=== PATIENT | female | born 1945 | race Caucasian/White ===

== ENCOUNTER → 2016-06-07 | Outpatient (CLI) | payer MEDICARE ==
--- NOTE | 2016-06-09 14:32 | DEXA ---
AP SPINE L1 - L4 0.884 -2.5 -1.0 LT FEMUR TOTAL 0.771 -1.9 -0.6 RT FEMUR TOTAL 0.808 -1.6 -0.3 TOTAL BODY TOTAL OTHER DUAL FEMUR FRAX* ASSESSMENT Risk factors: History of adult fracture. 10 year probability of fracture Major osteoporotic fracture 23.4 % Hip fracture 6.0 % COMMENTS: There is low bone density of the spine. There is low bone density of the right hip. There is osteoporosis of the left hip. The density of the spine has increased 2.7% since the initial exam on 05/2005. The spine density has increased 2.2% since the most recent exam on 02/2013. The density of the left hip has decreased 6.4% since the initial exam on 05/2005. The density of the left hip has decreased 6.5% since the most recent exam on 2012. The density of the right hip has decreased 5.7% since the initial exam on 2005. The density of the right hip has increased 0.1% since the most recent exam on . FOLLOW-UP: Recommendation for the next bone density exam: 2 years. CLAUDIA
== END ==
LOC: M WHC 11:02
PROVIDERS: ATTEND Internal Medicine
DX: M85.9 Disorder of bone density and structure, unspecified (principal); Z13.820 Encounter for screening for osteoporosis

== ENCOUNTER → 2016-10-26 | Outpatient (CLI) | payer MEDICARE ==
[2016-10-26 09:29] LABS: ALBUMIN 3.5 GM/DL (3.2-5.2); ALBUMIN/GLOBULIN RATIO 1.03 (1.00-1.93); ALKALINE PHOSPHATASE 62 U/L (45-117); ALT/SGPT 21 U/L (12-78); ANION GAP 9 MEQ/L (8-16); AST/SGOT 18 U/L (15-37); BILIRUBIN,TOTAL 0.3 MG/DL (0.2-1.0); BLOOD UREA NITROGEN 16 MG/DL (7-18); CARBON DIOXIDE LEVEL 27 MEQ/L (21-32); CHLORIDE LEVEL 109 MEQ/L (98-107); CHOLESTEROL LEVEL 238 MG/DL (<200); CREATININE FOR GFR 0.76 MG/DL (0.55-1.02); GLOMERULAR FILTRATION RATE > 60.0 (>45); GLUCOSE, FASTING 91 MG/DL (80-110); POTASSIUM SERUM 4.3 MEQ/L (3.5-5.1); SODIUM LEVEL 145 MEQ/L (136-145); TOTAL PROTEIN 6.9 GM/DL (6.4-8.2); TRIGLYCERIDES LEVEL 95 MG/DL (<150)
== END ==
LOC: M WUC 08:14
PROVIDERS: ATTEND Nurse Practitioner Adult Health
DX: Z00.00 Encounter for general adult medical examination without abnormal findings (principal); E78.2 Mixed hyperlipidemia

== ENCOUNTER → 2016-12-19 | Outpatient (CLI) | payer MEDICARE ==
--- NOTE | 2016-12-19 14:41 | REPMRS ---
Patient History The patient states she has not had a clinical breast exam in over a year. Patient is postmenopausal. No known family history of cancer. Benign FNA biopsy of the left breast, August 17, 2010. Digital Woman Screen Mammo: December 19, 2016 - Exam #: [id number] Bilateral CC and MLO view(s) were taken. Technologist: Trisha Aarna Technologist Prior study comparison: March 30, 2015, digital woman screen mammo performed at [facility] to [facility]. December 27, 2012, digital woman screen mammo performed at [facility] to [facility]. FINDINGS: There are scattered fibroglandular densities. There has been no change in the appearance of the mammogram from the prior studies. There is a mild amount of residual fibroglandular tissue which is fairly symmetric. There is no interval development of dominant mass, architectural distortion, or clustered microcalcification suggestive of malignancy. ASSESSMENT: BI-RADS/ACR category 1 mammogram. Negative. Recommendation Routine screening mammogram in 1 year (for women over age 40). This mammogram was interpreted with the aid of an FDA-approved computer-aided dectection system. Electronically Signed By: Cruzito Najera MD 12/19/16 [id number]
== END ==
LOC: M WHC 13:51
PROVIDERS: ATTEND Nurse Practitioner Family
DX: Z12.31 Encounter for screening mammogram for malignant neoplasm of breast (principal)

== ENCOUNTER → 2018-03-01 | Outpatient (REF) | payer MEDICARE ==
[2018-03-01 14:09] LABS: HEMATOCRIT 41.8 % (36.0-47.0); HEMOGLOBIN 13.3 g/dl (12.0-15.5); MEAN CORPUSCULAR HEMOGLOBIN 32.4 pg (27.0-33.0); MEAN CORPUSCULAR HGB CONC 31.8 g/dl (32.0-36.5); PLATELET COUNT, AUTOMATED 309 10^3/uL (150-450); RED CELL DISTRIBUTION WIDTH 12.6 % (11.5-14.5); WHITE BLOOD COUNT 5.3 10^3/uL (4.0-10.0)
[2018-03-01 14:19] LABS: ALBUMIN 3.7 GM/DL (3.2-5.2); ALBUMIN/GLOBULIN RATIO 1.12 (1.00-1.93); ALKALINE PHOSPHATASE 61 U/L (45-117); ALT/SGPT 17 U/L (12-78); ANION GAP 6 MEQ/L (8-16); AST/SGOT 19 U/L (7-37); BILIRUBIN,TOTAL 0.4 MG/DL (0.2-1.0); BLOOD UREA NITROGEN 20 MG/DL (7-18); CALCIUM LEVEL 9.2 MG/DL (8.8-10.2); CARBON DIOXIDE LEVEL 28 MEQ/L (21-32); CHLORIDE LEVEL 108 MEQ/L (98-107); CHOLESTEROL LEVEL 256 MG/DL (<200); CHOLESTEROL RISK RATIO 2.694 (<5); CREATININE FOR GFR 0.69 MG/DL (0.55-1.30); GLOMERULAR FILTRATION RATE > 60.0 (>39); GLUCOSE, FASTING 92 MG/DL (70-100); HDL CHOLESTEROL 95 MG/DL (>40); LDL CHOLESTEROL 144 MG/DL (<100); NON-HDL-C 161 MG/DL; POTASSIUM SERUM 4.8 MEQ/L (3.5-5.1); SODIUM LEVEL 142 MEQ/L (136-145); TRIGLYCERIDES LEVEL 85 MG/DL (<150)
== END ==
LOC: M SFHCPLAZ 09:08
DX: J98.01 Acute bronchospasm (principal); I10 Essential (primary) hypertension; E78.00 Pure hypercholesterolemia, unspecified
CPT/HCPCS: 83735

== ENCOUNTER → 2018-09-18 | Outpatient (REF) | payer MEDICARE ==
[2018-09-18 13:55] LABS: ALBUMIN 4.1 GM/DL (3.2-5.2); ALT/SGPT 19 U/L (12-78); BILIRUBIN,TOTAL 0.5 MG/DL (0.2-1.0); BLOOD UREA NITROGEN 23 MG/DL (7-18); CALCIUM LEVEL 9.5 MG/DL (8.8-10.2); CARBON DIOXIDE LEVEL 32 MEQ/L (21-32); CHLORIDE LEVEL 104 MEQ/L (98-107); CHOLESTEROL LEVEL 242 MG/DL (<200); CHOLESTEROL RISK RATIO 2.444 (<5); CREATININE FOR GFR 0.79 MG/DL (0.55-1.30); GLOMERULAR FILTRATION RATE > 60.0 (>39); GLUCOSE, FASTING 99 MG/DL (70-100); HDL CHOLESTEROL 99 MG/DL (>40); LDL CHOLESTEROL 125 MG/DL (<100); MAGNESIUM LEVEL 2.4 MG/DL (1.8-2.4); NON-HDL-C 143 MG/DL; SODIUM LEVEL 140 MEQ/L (136-145); TOTAL PROTEIN 7.6 GM/DL (6.4-8.2); TRIGLYCERIDES LEVEL 90 MG/DL (<150)
[2018-09-18 14:26] LABS: TOTAL 25(OH) VITAMIN D 24.4 NG/ML (30.0-100.0)
== END ==
LOC: M SFHCPLAZ 11:15
PROVIDERS: ATTEND Internal Medicine
DX: I10 Essential (primary) hypertension (principal); E78.00 Pure hypercholesterolemia, unspecified; M85.80 Other specified disorders of bone density and structure, unspecified site
CPT/HCPCS: 36415; 80053; 80061; 82306; 83735; G0463

== ENCOUNTER → 2018-10-28 | Outpatient (CLI) | payer MEDICARE ==
--- NOTE | 2018-10-28 14:51 | REPMRS ---
Patient History The patient states she has not had a clinical breast exam in over a year. No known family history of cancer. Benign FNA biopsy of the left breast, August 17, 2010. 3D TOMOSYNTHESIS WAS PERFORMED. [facility] lifetime risk for breast cancer is 3.5%. Digital Woman Screen Mammo: October 28, 2018 - Exam #: [id number] Bilateral CC and MLO view(s) were taken. Technologist: Magalie Melvin, Technologist Prior study comparison: December 19, 2016, digital woman screen mammo performed at [facility]. March 30, 2015, digital woman screen mammo performed at [facility] [employer] [facility]. FINDINGS: The breast tissue is heterogeneously dense. This may lower the sensitivity of mammography. There has been no change in the appearance of the mammogram from the prior studies. There is a moderate amount of residual fibroglandular tissue which is fairly symmetric. There is no interval development of dominant mass, areas of architectural distortion, or clustered microcalcification typical of malignancy. Assessment: BI-RADS/ACR category 1 mammogram. Negative Mammogram. Recommendation Routine screening mammogram in 1 year (for women over age 40). This mammogram was interpreted with the aid of an FDA-approved computer-aided dectection system. Electronically Signed By: Cruzito Najera MD 10/28/18 [id number]
--- NOTE | 2018-10-30 15:52 | DEXA ---
AP SPINE L1 - L4 0.899 -2.3 -0.7 LT FEMUR TOTAL 0.725 -2.2 -0.7 LT NECK 0.648 -2.8 -1.1 RT FEMUR TOTAL 0.749 -2.1 -0.5 RT NECK 0.675 -2.6 -0.9 TOTAL BODY TOTAL OTHER COMMENTS: There is low bone density of the spine. There is osteoporosis of the hips. The increased density of the spine does not represent a significant change. The decreased density of the left hip does represent a significant change. The decreased density of the right hip does represent a significant change. The density of the spine has increased 4.4% since the initial exam on 05/31/2005. The spine density has increased 1.7% since the most recent exam on 06/07/2016. The density of the left hip has decreased 12.0% since the initial exam on 05/31/2005. The density of the left hip has decreased 6.0% since the most recent exam on 06/07/2016. The density of the right hip has decreased 12.6% since the initial exam on 05/31/2005. The density of the right hip has decreased 7.3% since the most recent exam on 06/07/2016. FOLLOW-UP: Recommendation for the next bone density exam: 2 years. CLAUDIA
== END ==
LOC: M WHC 13:35
PROVIDERS: ATTEND Internal Medicine
DX: Z12.31 Encounter for screening mammogram for malignant neoplasm of breast (principal); M85.80 Other specified disorders of bone density and structure, unspecified site; M81.0 Age-related osteoporosis without current pathological fracture

== ENCOUNTER → 2019-03-19 | Outpatient (REF) | payer MEDICARE ==
[~2019-03-19] MED LIST: ACE65ERTAB PO; ALEN70TA74 PO; CHLO125TA PO; D 202000 PO; ELIQ5TAB PO; FISH1000 PO; FLUTISP NARES; GNP1000T11 PO; METH4PACK PO; MONT10TA2 PO; MULT-40 PO; OMEP-218 PO; PROAAER10 INH; VALA1TAB64 PO
[2019-03-19 14:06] LABS: HEMATOCRIT 43.6 % (36.0-47.0); HEMOGLOBIN 13.7 g/dl (12.0-15.5); MEAN CORPUSCULAR HEMOGLOBIN 31.6 pg (27.0-33.0); MEAN CORPUSCULAR HGB CONC 31.4 g/dl (32.0-36.5); MEAN CORPUSCULAR VOLUME 100.5 fl (80.0-96.0); PLATELET COUNT, AUTOMATED 373 10^3/uL (150-450); RED BLOOD COUNT 4.34 10^6/uL (4.00-5.40); WHITE BLOOD COUNT 8.2 10^3/uL (4.0-10.0)
[2019-03-19 14:35] LABS: ALBUMIN 3.9 GM/DL (3.2-5.2); ALT/SGPT 18 U/L (12-78); BILIRUBIN,TOTAL 0.4 MG/DL (0.2-1.0); BLOOD UREA NITROGEN 15 MG/DL (7-18); CALCIUM LEVEL 10.1 MG/DL (8.8-10.2); CARBON DIOXIDE LEVEL 28 MEQ/L (21-32); CHLORIDE LEVEL 102 MEQ/L (98-107); CHOLESTEROL LEVEL 235 MG/DL (<200); CHOLESTEROL RISK RATIO 2.447 (<5); CREATININE FOR GFR 0.83 MG/DL (0.55-1.30); GLOMERULAR FILTRATION RATE > 60.0 (>39); GLUCOSE, FASTING 78 MG/DL (70-100); HDL CHOLESTEROL 96 MG/DL (>40); LDL CHOLESTEROL 108 MG/DL (<100); MAGNESIUM LEVEL 2.2 MG/DL (1.8-2.4); NON-HDL-C 139 MG/DL; SODIUM LEVEL 139 MEQ/L (136-145); TOTAL 25(OH) VITAMIN D 28.8 NG/ML (30.0-100.0); TOTAL PROTEIN 7.8 GM/DL (6.4-8.2); TRIGLYCERIDES LEVEL 155 MG/DL (<150)
== END ==
LOC: M SFHCPLAZ 11:23
PROVIDERS: ATTEND Internal Medicine
DX: J98.01 Acute bronchospasm (principal); I10 Essential (primary) hypertension; E78.00 Pure hypercholesterolemia, unspecified; M85.80 Other specified disorders of bone density and structure, unspecified site
CPT/HCPCS: 36415; 80053; 80061; 82306; 83735; 84443; 85027; G0463

== ENCOUNTER 2019-04-07 11:09 | Inpatient (IN) | payer MEDICARE ==
[~2019-04-07] VITALS: Ht 152.4 cm; Wt 68.5 kg
[2019-04-07] MEDS ORDERED: VALA1TAB5 PO (12:21)
[2019-04-07] MEDS ORDERED: PROAAER10 INH (12:21)
[2019-04-07] MEDS ORDERED: MONT10TA4 PO (12:21)
[2019-04-07] MEDS ORDERED: FLUTISP NARES (12:21)
[2019-04-07] MEDS ORDERED: CHLO125TA PO (12:21)
[2019-04-07] MEDS ORDERED: METH4PACK PO (12:21)
[2019-04-07] MEDS ORDERED: OMEP-218 PO (12:21)
[2019-04-07] MEDS ORDERED: ALEN70TA74 PO (12:21)
[2019-04-07 12:33] LABS: HEMATOCRIT 38.6 % (36.0-47.0); HEMOGLOBIN 12.9 g/dl (12.0-15.5); MEAN CORPUSCULAR HEMOGLOBIN 32.4 pg (27.0-33.0); MEAN CORPUSCULAR HGB CONC 33.4 g/dl (32.0-36.5); PLATELET COUNT, AUTOMATED 272 10^3/uL (150-450); RED BLOOD COUNT 3.98 10^6/uL (4.00-5.40); WHITE BLOOD COUNT 14.1 10^3/uL (4.0-10.0)
[2019-04-07 12:44] LABS: INR 0.99; PARTIAL THROMBOPLASTIN TIME 26.5 SECONDS (25.0-38.4); PROTHROMBIN TIME 12.8 SECONDS (11.8-14.0)
[2019-04-07 12:58] LABS: BLOOD UREA NITROGEN 22 MG/DL (7-18); CARBON DIOXIDE LEVEL 27 MEQ/L (21-32); CHLORIDE LEVEL 102 MEQ/L (98-107); CK-MB VALUE MASS < 1.0 NG/ML (<3.6); CPK CREATINE PHOSPHOKINASE 54 U/L (26-192); CREATININE FOR GFR 0.91 MG/DL (0.55-1.30); GLOMERULAR FILTRATION RATE > 60.0 (>39); GLUCOSE, FASTING 128 MG/DL (70-100); MB/CK RELATIVE INDEX 1.85 (< OR =4); POTASSIUM SERUM 3.6 MEQ/L (3.5-5.1); SODIUM LEVEL 137 MEQ/L (136-145); TROPONIN I < 0.02 NG/ML (< 0.10)
[2019-04-07] MEDS ORDERED: ISOVUE-370 76% 100ML VIAL (Q9967) As Ordered ONE (13:33)
--- NOTE | 2019-04-07 14:04 | REP ---
CT of the chest with IV contrast, CT pulmonary artery angiography: There are no comparison CT studies. On a left lower extremity venous ultrasound earlier today. There is extensive deep vein thrombus. And the CT today there is a saddle of thrombus at the bifurcation of the main pulmonary artery. There is thrombus extending from the bifurcation into the right upper lobe, middle lobe and lower lobe pulmonary arteries. Additionally, there is thrombus extending from the bifurcation into the left upper lobe and lower lobe arteries. The thrombus burden is greater on the right than the left. There are no infiltrates or pleural effusions. There are no lung masses or nodules. There is no mediastinal, hilar or axillary adenopathy. The thoracic aorta is unremarkable. Cardiac size is normal. No pericardial effusion. The visualized upper abdominal contents are unremarkable. Impression: There is a saddle embolus in the central pulmonary arteries at the pulmonary bifurcation with thrombus extending bilaterally into the upper lobe, middle lobe and lower lobe pulmonary artery branches bilaterally. There is a greater thrombus burden on the right than the left. Electronically Signed by Cruzito Figueroa MD 04/07/2019 01:55 P
[2019-04-07] MEDS ORDERED: HEPARIN DRIP 25,000 UNITS in IV 1 EA IV SCH (14:27)
[2019-04-07] MEDS ORDERED: HEPARIN SOD (PORCINE) 5000 UNITS/ML VIAL (J1644 PER 1000UNITS) IV ONE (14:30)
[2019-04-07] MEDS ORDERED: GNP1000T11 PO (14:46)
[2019-04-07] MEDS ORDERED: MULT-40 PO (14:46)
[2019-04-07] MEDS ORDERED: ACE65ERTAB PO (14:46)
[2019-04-07] MEDS ORDERED: FISH1000 PO (14:46)
[2019-04-07] MEDS ORDERED: D 202000 PO (14:46)
--- NOTE | 2019-04-07 15:28 | CR.PDOC ---
General Date of Consultation: Apr 07, [address] Hartman HPI: 73 year old F found to have left lower extremity DVT at a local urgent care, sent to the emergency department for additional evaluation. CTA chest indicates pulmonary embolism. Vascular surgery consulted. The patient dates her symptoms began last Sunday with discomfort in her left lower extremity. She had some mild swelling. She denies any redness or t enderness with palpation. She went for evaluation at urgent care and was sent for an ultrasound of the left lower extremity indicating DVT. For this reason she was referred to the emergency department. She states she has not had any chest heaviness or tightness, yesterday she had a few twinges in her chest which were seconds only. This morning when she carries laundry upstairs she noticed shortness of breath. Currently she is resting comfortably on the stretcher in the emergency department and denies chest pain or shortness of breath. Oxygen saturation is stable on room air. She denies any recent travel, illnesses, denies any immobility. Denies any recent surgical procedures. Denies any history of malignancy. Denies any prior history of DVT or PE. Denies clotting disorder. The patient states she is usually very active with a 5-year-old granddaughter. The patient denies any episodes of uncontrolled blood pressure. Denies history of intracranial hemorrhage, AVM, intracranial neoplasm. Denies history of ischemic stroke or TIA within the past 3 months. Denies history of closed head trauma. Denies history of spinal surgery. Denies any recent eye surgery. Denies any recent bleeding, GI bleeding, hematuria, epistaxis. Denies any fevers, chills, weakness, fatigue, Headache, cough, abdominal pain, N/V/D or changes in bowel or bladder habits. PMHx: Asthma Hypertension GERD Osteoporosis PSHX: Rotator cuff repair SOCHX: Nonsmoker One to 2 drinks per week FAMHX: Denies family history of clotting disorder ROS: As noted in HPI, otherwise 11pt ROS of systems reviewed and unremarkable. PE: GEN: 73 yo F, appears stated age. Well-nourished, well developed. No acute distress. Alert and oriented x 3. Pleasant, interactive. HEENT: Normocephalic, atraumatic. Moist mucous membranes. CHEST: Regular rate and rhythm, +S1, +S2 LUNGS: Clear to auscultation bilaterally. ABD: Round, soft, non-tender, non-distended. EXT: No lower extremity edema appreciated. SKIN: [place], dry, warm. Capillary refill <2sec. No rashes. NEURO: Alert and oriented x 3. Cranial nerves III-XII are intact. No focal deficits appreciated. LLE US Left lower extremity deep vein duplex ultrasound for thrombus: There is extensive occlusive thrombus extending from the popliteal vein to the common femoral vein. Extensive thrombus is also identified in the profunda femoral vein. . No thrombus is identified in the saphenous vein. Impression: Complete occlusive thrombosis of the deep venous system of the left lower extremity. Electronically Signed by Cruzito Figueroa MD 04/07/2019 10:54 A CTA chest Impression: There is a saddle embolus in the central pulmonary arteries at the pulmonary bifurcation with thrombus extending bilaterally into the upper lobe, middle lobe and lower lobe pulmonary artery branches bilaterally. There is a greater thrombus burden on the right than the left. Electronically Signed by Cruzito Figueroa MD 04/07/2019 01:55 P A&P: 1. Extensive DVT/PE. Admission as per medicine service. Heart rate 97-112 Blood pressure 147/82 Oxygen saturation 95% room air. Hemoglobin 12.9 GFR greater than 60. TTE pending. Initial cardiac enzymes negative. Hypercoagulable workup pending. IV heparin per protocol initiated. The patient will be reviewed and examined as per Dr. Hartman, additional recommendations pending. Vital Signs/I&O Vital Signs Date Time Temp Pulse Resp B/P (MAP) Pulse Ox O2 Delivery O2 Flow Rate FiO2 04/07/19 15:11 147/82 (103) 04/07/19 15:09 101 18 95 Room Air 04/07/19 11:09 98.9 Laboratory Data Labs 24H Laboratory Tests 2 04/07/19 12:10: Nucleated Red Blood Cells % (auto) 0.0, Prothrombin Time 12.8, Prothromb Time International Ratio 0.99, Activated Partial Thromboplast Time 26.5, Anion Gap 8, Glomerular Filtration Rate > 60.0, Calcium Level 10.0, Total Creatine Kinase 54, Creatine Kinase MB < 1.0, Creatine Kinase MB Relative Index 1.85, Troponin I < 0.02 04/07/19 13:29: Fibrinogen 526H CBC/BMP Laboratory Tests 04/07/19 12:10 Allergies Coded Allergies: No Known Allergies (Verified Allergy, Unknown, 04/07/19) Home Medications Scheduled Alendronate Sodium (Alendronate Sodium) 70 Mg Tablet, 70 MG PO QWEEK, (Reported) NEW MEDICATION, HAS NOT STARTED Chlorthalidone (Chlorthalidone) 25 Mg Tablet, 12.5 MG PO DAILY, (Reported) HALF TABLET Cholecalciferol (Vitamin D3) (Vitamin D3) 2,000 Unit Tablet, 2,000 UNIT PO DAILY, (Reported) Glucosamine Sulfate Dipot Chlr (Glucosamine) 1,000 Mg Tablet, 1,000 MG PO DAILY, (Reported) Methylprednisolone (Methylprednisolone) 4 Mg Tab.ds.pk, 4 MG PO ASDIRECTED, (Reported) TO FOLLOW PACKAGE INSTRUCTIONS ON DAY 2 OF PACK Montelukast Sodium (Montelukast Sodium) 10 Mg Tablet, 10 MG PO DAILY, (Reported) Multivitamin (Multivitamins) 1 Each Tablet, 1 TAB PO DAILY, (Reported) [place]-3 Fatty Acids/Fish Oil (Fish Oil 1,000 mg Capsule) 1 Each Capsule, 1,000 MG PO DAILY, (Reported) Omeprazole (Omeprazole) 20 Mg Capsule.dr, 20 MG PO DAILY, (Reported) NEW MEDICATION Scheduled PRN Acetaminophen (Acetaminophen ER) 650 Mg Tablet.er, 1,300 MG PO Q8H PRN for PAIN, (Reported) Albuterol Sulfate (Proair Hfa) 8.5 Gm Hfa.aer.ad, 2 PUFFS INH QID PRN for SHORTNESS OF BREATH, (Reported) Fluticasone Propionate (Fluticasone Propionate) 16 Gm [place].susp, 1 SPRAY NARES BID PRN for CONGESTION, (Reported) Valacyclovir HCl (Valacyclovir) 1,000 Mg Tablet, 1,000 MG PO DAILYPRN PRN for COLD SORES, (Reported) Assessment/Plan 1. Left lower extremity ileofemoral DVT 2. Pulmonary emboli - given the extent of the left leg DVT, I recommended to her thrombolysis to decrease the chance of postthrombotic syndrome in that leg. On ultrasound, the clot extends likely into the iliac vein as it is seen in the common femoral. - recommend continued anticoagulation with a heparin drip and transition to oral anticoagulation after the procedures. Plan for venogram and placement of lysis catheter tomorrow in IR, will lysis overnight and return on Wednesday - discussed options with patient including risks and benefits of procedure. She would like to proceed. CC TO: Primary Care Provider: Milad Milligan Referring Provider: Problems: (1) Left leg DVT (2) Saddle pulmonary embolus Siria Avila Apr 07, 2019 15:28 ROLANDO HARTMAN MD Apr 07, 2019 17:11
[2019-04-07] MEDS ORDERED: POTASSIUM CHLORIDE 10 MEQ SR TABLET PO ONE (15:30)
--- NOTE | 2019-04-07 15:32 | HPEPDOC ---
[facility] Medical History & Physical Date of Admission Apr 07, 2019 Date of Service: Apr 07, 2019 Attending Physician: MISA LEO MD History and Physical CHIEF COMPLAINT: Sent from urgent care for left lower extremity DVT HISTORY OF PRESENT ILLNESS: 73-year-old female with past medical history of h ypertension and asthma presents from urgent care with left lower extremity DVT. Patient started experiencing left lower extremity swelling and cramping one week ago, went to urgent care yesterday, was sent home with oral steroids and advised to call back if no improvement in leg pain/swelling. Patient continued to have persistent symptoms, underwent outpatient lower extremity Doppler which showed an extensive left lower extremity DVT extending from the common femoral to the popliteal vein, even including superficial femoral vein. Patient had a CTA in the ED which showed a saddle embolus with extensive clot burden in both of her lungs. Patient is hemodynamically stable, on room air, slightly tachycardic. Patient is currently asymptomatic, denies any shortness of breath, chest pain, nausea, vomiting, abdominal pain or diarrhea. Patient has no personal history of malignancy, has been compliant with her routine mammograms and colonoscopy. 10 point review of system is negative except for above PAST MEDICAL HISTORY: 1. Hypertension. 2. Asthma. PAST SURGICAL HISTORY: 1. Rotator cuff. SOCIAL HISTORY: Never smoker. Social alcohol use. Denies drug use FAMILY HISTORY: No family history of blood clots. ALLERGIES: Please see below. HOME MEDICATIONS: Please see below. PHYSICAL EXAMINATION: VITAL SIGNS: Please see below. GENERAL: No distress HEENT: Normocephalic, atraumatic, moist mucous membranes NECK: Supple CARDIOVASCULAR EXAMINATION: S1, S2, tachycardic RESPIRATORY EXAMINATION: Scattered rhonchi, no wheezing ABDOMINAL EXAMINATION: Soft, nontender, nondistended, positive bowel sounds EXTREMITIES: Range of motion intact SKIN: No rash NEUROLOGICAL EXAMINATION: Alert and oriented 3, no focal deficits PSYCHIATRIC EXAMINATION: Calm and cooperative LABORATORY DATA: See below. IMAGING: Lower extremity Doppler showing extensive left lower extremity DVT. CTA showing saddle embolism with extensive clot burden in both of the lungs MICROBIOLOGY: Please see below. ASSESSMENT: 73-year-old female with past medical history of hypertension and asthma being admitted for left lower extremity DVT and saddle embolism with bilateral PEs. PLAN: 1. DVT with PE. Low sugar Doppler with extensive left lower septic clot burden, CTA showing saddle embolism with extensive clot burden in both lungs, hemodynamically stable, saturating well on room air, mildly tachycardic, asymptomatic. Heparin drip started, stat TTE ordered, vascular surgery consulted for possible IVC filter. Will monitor patient in the ICU, given extensive clot burden and possibility of having another embolism. Troponin negative, will trend. 2. Hypertension. Continue chlorthalidone 3. Asthma. Continue Singulair DVT prophylaxis: On heparin infusion. GI prophylaxis: Not needed Vital Signs Vital Signs Date Time Temp Pulse Resp B/P (MAP) Pulse Ox O2 Delivery O2 Flow Rate FiO2 04/07/19 15:11 147/82 (103) 04/07/19 15:09 101 18 95 Room Air 04/07/19 11:09 98.9 Laboratory Data Labs 24H Laboratory Tests 2 04/07/19 12:10: Nucleated Red Blood Cells % (auto) 0.0, Prothrombin Time 12.8, Prothromb Time International Ratio 0.99, Activated Partial Thromboplast Time 26.5, Anion Gap 8, Glomerular Filtration Rate > 60.0, Calcium Level 10.0, Total Creatine Kinase 54, Creatine Kinase MB < 1.0, Creatine Kinase MB Relative Index 1.85, Troponin I < 0.02 04/07/19 13:29: Fibrinogen 526H CBC/BMP Laboratory Tests 04/07/19 12:10 Home Medications Scheduled Alendronate Sodium (Alendronate Sodium) 70 Mg Tablet, 70 MG PO QWEEK NEW MEDICATION, HAS NOT STARTED Chlorthalidone (Chlorthalidone) 25 Mg Tablet, 12.5 MG PO DAILY HALF TABLET Cholecalciferol (Vitamin D3) (Vitamin D3) 2,000 Unit Tablet, 2,000 UNIT PO DAILY Glucosamine Sulfate Dipot Chlr (Glucosamine) 1,000 Mg Tablet, 1,000 MG PO DAILY Methylprednisolone (Methylprednisolone) 4 Mg Tab.ds.pk, 4 MG PO ASDIRECTED TO FOLLOW PACKAGE INSTRUCTIONS ON DAY 2 OF PACK Montelukast Sodium (Montelukast Sodium) 10 Mg Tablet, 10 MG PO DAILY Multivitamin (Multivitamins) 1 Each Tablet, 1 TAB PO DAILY [place]-3 Fatty Acids/Fish Oil (Fish Oil 1,000 mg Capsule) 1 Each Capsule, 1,000 MG PO DAILY Omeprazole (Omeprazole) 20 Mg Capsule.dr, 20 MG PO DAILY NEW MEDICATION Scheduled PRN Acetaminophen (Acetaminophen ER) 650 Mg Tablet.er, 1,300 MG PO Q8H PRN for PAIN Albuterol Sulfate (Proair Hfa) 8.5 Gm Hfa.aer.ad, 2 PUFFS INH QID PRN for SHORTNESS OF BREATH Fluticasone Propionate (Fluticasone Propionate) 16 Gm [place].susp, 1 SPRAY NARES BID PRN for CONGESTION Valacyclovir HCl (Valacyclovir) 1,000 Mg Tablet, 1,000 MG PO DAILYPRN PRN for COLD SORES Allergies Coded Allergies: No Known Allergies (Verified Allergy, Unknown, 04/07/19) A-FIB/CHADSVASC A-FIB History Current/History of A-Fib/PAF?: No MISA LEO MD Apr 07, 2019 15:32
[2019-04-07 17:47] VITALS: BP 159/72
[2019-04-07] MEDS: NS 1,000 ML IV SCH (17:59)
[2019-04-07] MEDS: ACETAMINOPHEN TAB 650MG DOSE (2X325MG) PO PRN (19:08)
--- NOTE | 2019-04-07 19:15 | ECGEPIP ---
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
[2019-04-07 20:00] VITALS: BP 133/78
[2019-04-07] MEDS: HEPARIN SOD (PORCINE) 5000 UNITS/ML VIAL (J1644 PER 1000UNITS) IV PRN (21:37)
[2019-04-07 22:00] VITALS: BP 112/72
--- NOTE | 2019-04-07 22:25 | ECHO ---
DATE OF PROCEDURE: 04/07/2019 REFERRING PHYSICIAN: Dr. Deion Oden INDICATION: Pulmonary embolism. HEIGHT: 64 inches WEIGHT: 163 pounds 2D MEASUREMENTS: Aortic root: 3.4 cm Proximal ascending aorta: 3.9 cm Left atrium: 4.2 cm Ventricular septum: 1.03 cm Posterior wall: 0.98 cm Left ventricle diastole: 4.6 cm Aortic annulus: 2.3 cm Inferior vena cava: 1.6 cm with normal respiratory variation (CVP estimated to be 5-10 mmHg). DOPPLER MEASUREMENTS: Aortic valve velocity: 115 cm/s LVOT velocity: 93.3 cm/s Mitral E velocity: 53.6 cm/s Mitral A velocity: 105 cm/s Mitral deceleration time: 271 ms No mitral regurgitation. Moderate tricuspid regurgitation. No aortic regurgitation. Trace pulmonic regurgitation. Estimated right ventricle systolic pressure: 62-67 mmHg assuming a pressure of 5-10 mmHg. MITRAL ANNULAR TISSUE DOPPLER: E prime lateral: 10.8 cm/s E prime septal: 5.55 cm/s DESCRIPTION: Rhythm was sinus. Image quality was adequate. No pericardial effusion. This was a 2D, M-mode, color flow Doppler and pulse wave Doppler examination and included mitral annular tissue Doppler. CONCLUSIONS: 1. Suggestive of severe elevation of estimated right ventricle systolic pressure (62-67 mmHg). Normal right ventricle size and systolic function. Structurally normal appearing tricuspid leaflets with moderate tricuspid regurgitation. 2. Normal left ventricle internal dimensions and wall thickness. Normal regional LV wall motion and wall thickening. Normal LV systolic function. Left ventricular ejection fraction (LVEF) 65-70% by visual estimate. Grade 1 LV diastolic dysfunction (impaired relaxation filling pattern). 3. Mild aortic valve sclerosis of a 3-cusp aortic valve. No aortic regurgitation. 4. Mild mitral annular calcification. No mitral regurgitation. 5. Mild dilatation of the proximal ascending aorta (3.9 cm). 6. Otherwise normal appearing echocardiogram Doppler findings.
[2019-04-07] MEDS ORDERED: PREVNAR 13 VACCINE SYRINGE (CPT CODE:90670) IM SCH (23:45)
[2019-04-08] VITALS (14 sets, daily range): BP systolic 105–164; BP diastolic 51–89
[2019-04-08] MEDS: NS 1,000 ML IV SCH (01:30)
[2019-04-08 05:06] LABS: HEMATOCRIT 36.7 % (36.0-47.0); HEMOGLOBIN 11.6 g/dl (12.0-15.5); MEAN CORPUSCULAR HEMOGLOBIN 31.5 pg (27.0-33.0); MEAN CORPUSCULAR HGB CONC 31.6 g/dl (32.0-36.5); MEAN CORPUSCULAR VOLUME 99.7 fl (80.0-96.0); PLATELET COUNT, AUTOMATED 282 10^3/uL (150-450); RED BLOOD COUNT 3.68 10^6/uL (4.00-5.40)
[2019-04-08 05:35] LABS: ALBUMIN 2.9 GM/DL (3.2-5.2); ALT/SGPT 13 U/L (12-78); BILIRUBIN,TOTAL 0.2 MG/DL (0.2-1.0); BLOOD UREA NITROGEN 16 MG/DL (7-18); CALCIUM LEVEL 8.5 MG/DL (8.8-10.2); CARBON DIOXIDE LEVEL 29 MEQ/L (21-32); CHLORIDE LEVEL 109 MEQ/L (98-107); CREATININE FOR GFR 0.76 MG/DL (0.55-1.30); GLOMERULAR FILTRATION RATE > 60.0 (>39); GLUCOSE, FASTING 86 MG/DL (70-100); MAGNESIUM LEVEL 2.2 MG/DL (1.8-2.4); POTASSIUM SERUM 3.8 MEQ/L (3.5-5.1); SODIUM LEVEL 146 MEQ/L (136-145); TOTAL PROTEIN 6.6 GM/DL (6.4-8.2)
[2019-04-08] MEDS: D5W/0.45% SODIUM CHLORIDE 1,000 ML IV SCH ×2 (08:41→20:19)
[2019-04-08] MEDS: ACETAMINOPHEN TAB 650MG DOSE (2X325MG) PO PRN ×2 (10:11→20:19)
--- NOTE | 2019-04-08 10:38 | IPNPDOC ---
Text Note Date of Service The patient was seen on 04/08/19. NOTE Patient seen this morning. Doing well without complaints. Results of ECHO were noted and results were discussed with Dr. East with IR. She reviewed the CT images and recommends thrombolysis of the PEs given the clot burden that is present. Plan changed to placing lysis catheters in the PA and return to IR tomorrow for follow up. Will hold off on placing the filter and intervening on the left leg until lysis of the PEs is completed. I discussed this with the patient and the hospitalist. VS,Vijaybone, I+O VS, Fishbone, I+O Laboratory Tests 04/07/19 12:10 04/08/19 04:27 Vital Signs Date Time Temp Pulse Resp B/P (MAP) Pulse Ox O2 Delivery O2 Flow Rate FiO2 04/08/19 07:51 98.3 85 18 135/63 (87) 96 Room Air I&O- Last 24 Hours up to 6 AM 04/08/19 06:00 Intake Total 1352 ml Output Total 1200 ml Balance 152 ml ROLANDO HARTMAN MD Apr 08, 2019 10:38
[2019-04-08 11:31] LABS: DRVV SCREEN 52.3 SEC
[2019-04-08 11:35] LABS: PTT LUPUS TYPE ANTICOAG SCREEN 1.3 (0-1.2)
[2019-04-08] MEDS ORDERED: HEPARIN 25,000 UNITS/250 ML D5W BAG (100 UNITS/ML) (J1644 PER 1000UNITS) As Ordered ONE (11:39)
[2019-04-08 11:50] LABS: DRVV CONFIRM 40.8 SEC; LUPUS CONFIRM RATIO 1.1
[2019-04-08 11:51] LABS: NORMALIZED RATIO 1.18 (0.00-1.20)
[2019-04-08] MEDS ORDERED: ALTEPLASE RECOMBINANT 10 MG in NS 990 ML IV SCH ×3 (12:30→20:00)
[2019-04-08] MEDS ORDERED: HEPARIN DRIP 25,000 UNITS in IV 1 EA IV SCH (12:30)
--- NOTE | 2019-04-08 14:32 | POST-OPPD ---
Postoperative Procedure Note Date Of Procedure: Apr 08, 2019 Time Of Procedure: 14:31 PREOPERATIVE DIAGNOSIS: PE. right heart strain POSTOPERATIVE DIAGNOSIS: same FINDINGS: pulmonary emboli, righty> left PROCEDURE: pulmonary angiogram and infusion catheter placement in main PA and right PA. TPA overnight and check tomorrow. SURGEON: kody ANESTHESIA: mod sed ESTIMATED BLOOD LOSS: < 5 ml COMPLICATIONS: none POSTOPERATIVE CONDITION: stable GABRIELE FAN MD Apr 08, 2019 14:32
[2019-04-08] MEDS: HEPARIN DRIP 25,000 UNITS in IV 1 EA IV SCH (15:16)
--- NOTE | 2019-04-08 16:06 | IPNPDOC ---
Date Seen The patient was seen on 04/08/19. Progress Note HISTORY OF PRESENT ILLNESS: 73-year-old female with past medical history of hypertension and asthma presents from urgent care with left lower extremity DVT. Patient started experiencing left lower extremity swelling and cramping one week ago, went to urgent care yesterday, was sent home with oral steroids and advised to call back if no improvement in leg pain/swelling. Patient continued to have persistent symptoms, underwent outpatient lower extremity Doppler which showed an extensive left lower extremity DVT extending from the common femoral to the popliteal vein, even including superficial femoral vein. Patient had a CTA in the ED which showed a saddle embolus with extensive clot burden in both of her lungs. Patient is hemodynamically stable, on room air, slightly tachycardic. Patient is currently asymptomatic, denies any shortness of breath, chest pain, nausea, vomiting, abdominal pain or diarrhea. Patient has no personal history of malignancy, has been compliant with her routine mammograms and colonoscopy. 04/08/19 Patient seen in the morning, comfortable, no complaints overnight, scheduled for thrombolysis of PE by IR later today. Patient denies any shortness of breath, chest pain, nausea, vomiting, abdominal pain or diarrhea. 10 point review of system is negative except for above PHYSICAL EXAMINATION: VITAL SIGNS: Please see below. GENERAL: No distress HEENT: Normocephalic, atraumatic, moist mucous membranes NECK: Supple CARDIOVASCULAR EXAMINATION: S1, S2, tachycardic RESPIRATORY EXAMINATION: Scattered rhonchi, no wheezing ABDOMINAL EXAMINATION: Soft, nontender, nondistended, positive bowel sounds EXTREMITIES: Left lower extremity with edema SKIN: No rash NEUROLOGICAL EXAMINATION: Alert and oriented 3, no focal deficits PSYCHIATRIC EXAMINATION: Calm and cooperative LABORATORY DATA: See below. IMAGING: Lower extremity Doppler showing extensive left lower extremity DVT. CTA showing saddle embolism with extensive clot burden in both of the lungs MICROBIOLOGY: Please see below. ASSESSMENT: 73-year-old female with past medical history of hypertension and asthma being admitted for left lower extremity DVT and saddle embolism with bilateral PEs. PLAN: 1. DVT with PE. Doppler showing extensive left lower extremity DVT, CTA showing saddle embolism with extensive clot burden in both lungs, hemodynamically stable, saturating well on room air, mildly tachycardic, asymptomatic. TTE showing significantly elevated right ventricular systolic pressure, case discussed with IR who recommend localized thrombolysis of PE with insertion of catheter in the pulmonary artery, possible thrombolysis of left lower extremity DVT in the future, continue heparin drip, continue ICU monitoring. 2. Hypertension. Continue chlorthalidone 3. Asthma. Continue Singulair DVT prophylaxis: On heparin infusion. GI prophylaxis: Not needed VS, I&O, 24H, Fishbone Vital Signs/I&O Vital Signs Date Time Temp Pulse Resp B/P (MAP) Pulse Ox O2 Delivery O2 Flow Rate FiO2 04/08/19 14:05 97.0 116 18 164/79 (107) 93 Room Air 04/08/19 13:01 3 I&O- Last 24 Hours up to 6 AM 04/08/19 06:00 Intake Total 1352 ml Output Total 1200 ml Balance 152 ml Laboratory Data 24H LABS Laboratory Tests 2 04/07/19 21:01: Activated Partial Thromboplast Time 44.8H 04/08/19 04:27: Activated Partial Thromboplast Time 120.1*H, Nucleated Red Blood Cells % (auto) 0.0, Anion Gap 8, Glomerular Filtration Rate > 60.0, Calcium Level 8.5L, Magnesium Level 2.2, Total Bilirubin 0.2, Aspartate Amino Transf (AST/SGOT) 14, Alanine Aminotransferase (ALT/SGPT) 13, Alkaline Phosphatase 65, Total Protein 6.6, Albumin 2.9L, Albumin/Globulin Ratio 0.78L 04/08/19 14:11: Activated Partial Thromboplast Time 49.1H CBC/BMP Laboratory Tests 04/08/19 04:27 MISA LEO MD Apr 08, 2019 16:06
[2019-04-08 20:20] LABS: HEMATOCRIT 38.2 % (36.0-47.0); HEMOGLOBIN 12.1 g/dl (12.0-15.5); MEAN CORPUSCULAR HEMOGLOBIN 31.6 pg (27.0-33.0); MEAN CORPUSCULAR HGB CONC 31.7 g/dl (32.0-36.5); MEAN CORPUSCULAR VOLUME 99.7 fl (80.0-96.0); PLATELET COUNT, AUTOMATED 257 10^3/uL (150-450); RED BLOOD COUNT 3.83 10^6/uL (4.00-5.40); WHITE BLOOD COUNT 8.7 10^3/uL (4.0-10.0)
[2019-04-08 20:43] LABS: BLOOD UREA NITROGEN 10 MG/DL (7-18); CALCIUM LEVEL 8.6 MG/DL (8.8-10.2); CARBON DIOXIDE LEVEL 31 MEQ/L (21-32); CHLORIDE LEVEL 109 MEQ/L (98-107); CREATININE FOR GFR 0.83 MG/DL (0.55-1.30); GLOMERULAR FILTRATION RATE > 60.0 (>39); GLUCOSE, FASTING 111 MG/DL (70-100); POTASSIUM SERUM 3.3 MEQ/L (3.5-5.1); SODIUM LEVEL 142 MEQ/L (136-145)
[2019-04-08] MEDS ORDERED: POTASSIUM CHLORIDE 10 MEQ SR TABLET PO ONE (21:30)
[2019-04-09] VITALS (14 sets, daily range): BP systolic 107–174; BP diastolic 55–97
[2019-04-09 02:51] LABS: HEMATOCRIT 35.7 % (36.0-47.0); HEMOGLOBIN 11.4 g/dl (12.0-15.5); MEAN CORPUSCULAR HEMOGLOBIN 31.9 pg (27.0-33.0); MEAN CORPUSCULAR HGB CONC 31.9 g/dl (32.0-36.5); PLATELET COUNT, AUTOMATED 224 10^3/uL (150-450); RED BLOOD COUNT 3.57 10^6/uL (4.00-5.40); WHITE BLOOD COUNT 9.2 10^3/uL (4.0-10.0)
[2019-04-09 03:16] LABS: BLOOD UREA NITROGEN 9 MG/DL (7-18); CALCIUM LEVEL 8.6 MG/DL (8.8-10.2); CARBON DIOXIDE LEVEL 28 MEQ/L (21-32); CHLORIDE LEVEL 110 MEQ/L (98-107); CREATININE FOR GFR 0.72 MG/DL (0.55-1.30); GLOMERULAR FILTRATION RATE > 60.0 (>39); GLUCOSE, FASTING 102 MG/DL (70-100); PHOSPHORUS LEVEL 1.9 MG/DL (2.5-4.9); POTASSIUM SERUM 3.7 MEQ/L (3.5-5.1); SODIUM LEVEL 142 MEQ/L (136-145)
[2019-04-09 03:17] LABS: MAGNESIUM LEVEL 2.1 MG/DL (1.8-2.4)
[2019-04-09 03:50] LABS: PARTIAL THROMBOPLASTIN TIME 158.7 SECONDS (25.0-38.4)
[2019-04-09] MEDS ORDERED: NS 1,000 ML IV SCH (04:15)
[2019-04-09] MEDS: ACETAMINOPHEN TAB 650MG DOSE (2X325MG) PO PRN ×2 (06:00→17:17)
[2019-04-09 06:02] LABS: INR 1.07; PROTHROMBIN TIME 13.6 SECONDS (11.8-14.0)
[2019-04-09 06:04] LABS: PARTIAL THROMBOPLASTIN TIME 57.7 SECONDS (25.0-38.4)
[2019-04-09] MEDS ORDERED: HEPARIN DRIP 25,000 UNITS in IV 1 EA IV SCH ×2 (06:30→06:37)
[2019-04-09] MEDS: D5W/0.45% SODIUM CHLORIDE 1,000 ML IV SCH (08:22)
[2019-04-09] MEDS ORDERED: POTASSIUM PHOSPHATE INJ 30 MMOL in D5W 500 ML IV ONE (10:00)
[2019-04-09] MEDS ORDERED: ISOVUE-370 76% 100ML VIAL (Q9967) As Ordered ONE (10:59)
[2019-04-09] MEDS ORDERED: MIDAZOLAM INJ 2 MG/2 ML VIAL (J2250) As Ordered ONE (11:43)
[2019-04-09] MEDS ORDERED: fentaNYL 100 MCG/2 ML INJECTION (J3010) As Ordered ONE (11:43)
[2019-04-09] MEDS ORDERED: LIDOCAINE 1% MDV 20ML VIAL As Ordered ONE (11:44)
[2019-04-09] MEDS ORDERED: ISOVUE-300 61% 50ML VIAL (Q9967) As Ordered ONE (11:44)
[2019-04-09] MEDS ORDERED: diphenhydrAMINE INJ 50MG/ML VIAL (J1200) As Ordered ONE (11:45)
[2019-04-09] MEDS ORDERED: HEPARIN 1,000 UNITS/ML 10ML VIAL (FOR RADIOLOGY& DIALYSIS ONLY)(J1644-10) As Ordered ONE (12:37)
--- NOTE | 2019-04-09 13:35 | IRINPTCON ---
[facility] IR Inpatient Consultation IR Inpatient Consultation DATE: Apr 08, 2019 REASON FOR CONSULTATION/CHIEF COMPLAINT: Pulmonary embolus. Right heart strain. HISTORY OF PRESENT ILLNESS: 73-year-old female with hypertension and asthma, presented to the hospital with left lower extremity pain and swelling. Found to have left lower extremity deep vein thrombosis and large saddle embolus on CT PE protocol. Referred by vascular surgery for PE thrombolysis. Patient denies shortness of breath, hemoptysis or chest pain. No prior history of DVT or PE. ALLERGIES: Please see below. HOME MEDICATIONS: Please see below. PAST MEDICAL HISTORY: Hypertension Asthma PAST SURGICAL HISTORY: Rotator cuff surgery FAMILY HISTORY: No history of DVTs or PE. SOCIAL HISTORY: Nonsmoker, occasional alcohol. No drugs. REVIEW OF SYSTEMS: Otherwise negative. PHYSICAL EXAMINATION: VITAL SIGNS: Please see below. GENERAL APPEARANCE: Appears well. Comfortable at rest. Able to speak in complete sentences without shortness of breath. HEENT: No scleral icterus. RESPIRATORY: Normal breathing at rest. CARDIOVASCULAR: Tachycardic heart rate 95. ABDOMEN: Soft nontender. EXTREMITIES: Moving all 4 extremities. NEUROLOGICAL: Alert and oriented. PSYCHIATRIC: Appropriate to circumstance. LABORATORY DATA: 04/07/2019 hemoglobin 12.9 WBC 14.1 hematocrit 38.6 platelets 272 sodium 137 potassium 3.6 BUN 22 creatinine 0.9 troponin less than 0.02 Imaging: I personally reviewed the CT PE protocol from 04/07/2019. Extensive pulmonary artery clot burden including saddle embolus in the right and left main pulmonary arteries and thrombus within the right upper lobar, interlobar, lower lobar, segmental and subsegmental branches. Smaller partially occlusive filling defects within the left upper and lower lobar branches and lower left segmental and subsegmental branches. Ultrasound left lower extremity 04/07/2019: I personally reviewed the ultrasound images, there is occlusive thrombus from left popliteal vein extending up to the left common femoral vein. Echo 04/07/2019: Reported as "Suggestive of severe elevation of estimated right ventricle systolic pressure (62-67 mmHg). " ASSESSMENT/PLAN: 73-year-old female presents with extensive left lower extremity deep vein thrombosis and saddle pulmonary embolus with indications of right heart strain. Patient is a candidate for catheter directed PE thrombolysis. We will perform PE thrombolysis followed by filter placement and bring patient back for same day DVT thrombolysis at a later date. I spent 30 minutes in consultation with the patient. Thank you for this referral. Allergies Coded Allergies: No Known Allergies (Verified Allergy, Unknown, 04/07/19) Home Medications Scheduled Alendronate Sodium (Alendronate Sodium), 70 MG PO QWEEK, (Reported) Chlorthalidone (Chlorthalidone), 12.5 MG PO DAILY, (Reported) Cholecalciferol (Vitamin D3) (Vitamin D3), 2,000 UNIT PO DAILY, (Reported) Glucosamine Sulfate Dipot Chlr (Glucosamine), 1,000 MG PO DAILY, (Reported) Methylprednisolone (Methylprednisolone), 4 MG PO ASDIRECTED, (Reported) Montelukast Sodium (Montelukast Sodium), 10 MG PO DAILY, (Reported) Multivitamin (Multivitamins), 1 TAB PO DAILY, (Reported) Gilman-3 Fatty Acids/Fish Oil (Fish Oil 1,000 mg Capsule), 1,000 MG PO DAILY, (Reported) Omeprazole (Omeprazole), 20 MG PO DAILY, (Reported) Scheduled PRN Acetaminophen (Acetaminophen ER), 1,300 MG PO Q8H PRN for PAIN, (Reported) Albuterol Sulfate (Proair Hfa), 2 PUFFS INH QID PRN for SHORTNESS OF BREATH, (Reported) Fluticasone Propionate (Fluticasone Propionate), 1 SPRAY NARES BID PRN for CONGESTION, (Reported) Valacyclovir HCl (Valacyclovir), 1,000 MG PO DAILYPRN PRN for COLD SORES, (Reported) VS, I&O, 24H, Fishbone Vital Signs/I&O Vital Signs Date Time Temp Pulse Resp B/P (MAP) Pulse Ox O2 Delivery O2 Flow Rate FiO2 04/09/19 13:10 68 16 100 Nasal Cannula 2 04/09/19 11:30 97.9 04/09/19 08:00 120/84 (96) I&O- Last 24 Hours up to 6 AM 04/09/19 05:59 Intake Total 2428.50 ml Output Total 1900 ml Balance 528.50 ml Laboratory Data 24H LABS Laboratory Tests 2 04/08/19 14:11: Activated Partial Thromboplast Time 49.1H 04/08/19 20:07: Activated Partial Thromboplast Time 94.9H, Nucleated Red Blood Cells % (auto) 0.0, Fibrinogen 455H, Anion Gap 2L, Glomerular Filtration Rate > 60.0, Calcium Level 8.6L 04/09/19 02:43: Activated Partial Thromboplast Time 158.7*H, Nucleated Red Blood Cells % (auto) 0.0, Fibrinogen 460H, Anion Gap 4L, Glomerular Filtration Rate > 60.0, Calcium Level 8.6L, Phosphorus Level 1.9L, Magnesium Level 2.1 04/09/19 05:40: Activated Partial Thromboplast Time 57.7H, Prothrombin Time 13.6, Prothromb Time International Ratio 1.07 CBC/BMP Laboratory Tests 04/08/19 20:07 04/09/19 02:43 Microbiology Microbiology 04/09/19 Stool Occult Blood (SAM) - Final, Complete 04/08/19 Stool Occult Blood (SAM) - Final, Complete GABRIELE FAN MD Apr 09, 2019 13:35
--- NOTE | 2019-04-09 13:38 | POST-OPPD ---
Postoperative Procedure Note Date Of Procedure: Apr 09, 2019 Time Of Procedure: 13:36 PREOPERATIVE DIAGNOSIS: Saddle embolus POSTOPERATIVE DIAGNOSIS: Same FINDINGS: CT performed today demonstrates interval dissolution of saddle embolus. There is improved perfusion through the right upper, middle and lower lobar and segmental pulmonary arteries. Improved flow to the left lower lobar and segmental pulmonary arteries. Patient's tachycardia has resolved. Current heart rate 71. Patient doing well. PROCEDURE: PE lysis catheter removed from the pulmonary arteries. IVC filter placed. Continue systemic heparinization and transition to oral anticoagulation. SURGEON: Cruzito ANESTHESIA: local ESTIMATED BLOOD LOSS: < 5 ml COMPLICATIONS: none POSTOPERATIVE CONDITION: stable GABRIELE FAN MD Apr 09, 2019 13:38
--- NOTE | 2019-04-09 13:43 | REP ---
CT of the chest with IV contrast, CT pulmonary angiography: Comparison is 04/07/2019. There has been interval placement of a central venous catheter. The catheter tip traverses the right atrium, right ventricle, pulmonary trunk and resides in the right lower lobe pulmonary artery. The previously identified saddle embolus extending into the left pulmonary arteries is no longer identified except for a few tiny barely visible emboli in the left main pulmonary artery. The saddle embolus in the central right pulmonary artery identified previously is no longer present. However, there are persisting emboli in the proximal right upper lobe, right middle lobe and right lower lobe arteries. However, the thrombus burden appears to have decreased. Lung jewell are otherwise clear. Thoracic aorta is unremarkable. Cardiac size is normal. No pericardial effusion. Impression: There has been interval placement of a central venous catheter with the tip residing in the right lower lobe pulmonary artery. The central pulmonary emboli have decreased in size as discussed above. Electronically Signed by Cruzito Figueroa MD 04/09/2019 01:35 P
--- NOTE | 2019-04-09 14:16 | REP ---
IR right neck ultrasound. IR ultrasound guided right internal jugular vein access. IR pulmonary angiography. IR pulmonary artery catheterization. IR selective right pulmonary artery catheterization. IR main and right pulmonary artery infusion catheter placement. IR thrombolysis. IR moderate sedation. Clinical information: Saddle pulmonary embolus. Right heart strain. Physician: Dr. East. Procedure: The patient was advised of the benefits, risks and alternatives of the procedure and informed consent was obtained. The time-out was performed with verification of the patient's name MRN, site of procedure and type of procedure to be performed. The patient was positioned in the supine position on the angiographic table. The site was prepped and draped in the usual sterile fashion. Moderate sedation was performed by the physician including the presence of an independent trained observer who assisted in monitoring the patient's level of consciousness and physiologic status. Following the administration of fentanyl and Versed, the physician spent 60 minutes of continuous face to face time with the patient. A quality control tech raw materials radiograph reveals no gross abnormality. Ultrasound of the right neck demonstrates patent and compressible right internal jugular vein. A micropuncture needle was used under ultrasound guidance to access the right internal jugular vein. An 018 wire was advanced into the inferior vena cava and the micropuncture needle was exchanged for a micro sheath. The micro wire and sheath were removed and a Bentson wire was advanced through the micro sheath into the right ventricle. The micro sheath was exchanged over the wire under fluoroscopy guidance for a 6-Djib[place]ian vascular sheath. The Bentson wire in conjunction with a pigtail catheter was used under fluoroscopy guidance to catheterize the main pulmonary artery. Pulmonary angiography was performed and this demonstrates preferential filling of the left pulmonary arteries. Poor filling of the main pulmonary artery, right main pulmonary artery and right lobar and segmental branches. A wire was advanced through the pigtail catheter and the pigtail catheter was exchanged over the wire for a Kumpe catheter. The catheter in conjunction with the wire was used to catheterize the right main pulmonary artery and sub selectively catheterize the right interlobar followed by the lower lobar pulmonary artery . Injection of contrast confirmed location in the right lower lobar pulmonary artery. The catheter was removed over the wire. A 5-Djiboutian 10 cm infusion length Unifuse catheter was then advanced over the wire under fluoroscopy guidance and positioned with the sideholes extending from the main pulmonary artery through the right main pulmonary artery to the lobar branch. The wire was removed and the inner stylet was secured in position. The sheath and catheter were secured to the neck. The infusion catheter was connected to TPA 1 mg per hour. The side arm of the sheath was connected to heparin 400 units per hour. The patient tolerated the procedure well and was returned to ICU in stable condition. EBL: Less than 5 ml. Complications: None. Impression: 1. Pulmonary angiography demonstrates extensive clot burden within the main and right main, lobar and segmental pulmonary arteries. 2. Successful placement of thrombolysis infusion catheter for overnight pulmonary thrombolysis. The patient will return to IR tomorrow for lysis check and filter placement. Thank you this referral. Electronically Signed by Kandy East MD 04/09/2019 02:14 P
--- NOTE | 2019-04-09 14:26 | REP ---
IR evaluation of CT angiogram images. IR removal of lysis catheter. IR Venogram. IVC filter placement. Clinical indication : Saddle embolus and left lower extremity deep vein thrombosis. Right heart strain. Lysis check and filter placement. Physician: Dr. East. Procedure: The patient was advised of the benefits, risks and alternatives of the procedure and informed consent was obtained. The time-out was performed with verification of the patient's name, MRN, site of procedure and type of procedure to be performed. The patient was positioned in the supine position on the angiographic table. The site was prepped and draped in the usual sterile fashion. Moderate sedation was not performed as patient was not npo however, Fentanyl was administered for analgesia. The physician spent 60 minutes of continuous face to face time with the patient. Evaluation of CT angiography of the chest performed today demonstrates interval resolution of saddle embolus. There is now flow to the right upper lobar, interlobar and lower lobar, segmental and sub segmental pulmonary arteries. Improved flow to the left lower lobar pulmonary arteries. A radiological equipment specialist radiograph demonstrates infusion catheter in place. Lidocaine was injected around the sheath site. The inner stylet of the infusion catheter was removed and a wire was advanced through the infusion catheter under fluoroscopy guidance. The infusion catheter was removed over the wire. The wire was then advanced through the sheath under fluoroscopy guidance into the inferior vena cava. The 6-Kenyan sheath was removed over the wire. A filter sheath was then advanced over the wire under fluoroscopy guidance into the peripheral inferior vena cava. An inferior vena cava venogram was then performed demonstrating a normal caliber inferior vena cava without filling defects and the renal vein inflow at the L1 - 2 level. No caval anomalies were identified. A filter was then advanced through the sheath and positioned within the infrarenal inferior vena cava. The filter was then deployed in the usual fashion. Positioning was confirmed fluoroscopically. The sheath was then removed and hemostasis obtained with manual compression. The patient tolerated the procedure well and was returned to ICU in stable condition. EBL: Less than 5 ml. Complications: None. Impression: 1. CT angiography demonstrates adequate dissolution and improved pulmonary arterial flow to all lobes of the lungs. 2. Successful removal of pulmonary artery lysis catheter. 3. Normal inferior vena cava venogram. 4. Successful deployment of a cook select filter in the infrarenal inferior vena cava. 5. Patient will be brought back for same day outpatient DVT thrombolysis. Continue systemic heparin and transition to oral anticoagulation. Thank you this referral. Electronically Signed by Kandy East MD 04/09/2019 02:23 P
--- NOTE | 2019-04-09 17:24 | IPNPDOC ---
Date Seen The patient was seen on 04/09/19. Progress Note HISTORY OF PRESENT ILLNESS: 73-year-old female with past medical history of hypertension and asthma presents from urgent care with left lower extremity DVT. Patient started experiencing left lower extremity swelling and cramping one week ago, went to urgent care yesterday, was sent home with oral steroids and advised to call back if no improvement in leg pain/swelling. Patient continued to have persistent symptoms, underwent outpatient lower extremity Doppler which showed an extensive left lower extremity DVT extending from the common femoral to the popliteal vein, even including superficial femoral vein. Patient had a CTA in the ED which showed a saddle embolus with extensive clot burden in both of her lungs. Patient is hemodynamically stable, on room air, slightly tachycardic. Patient is currently asymptomatic, denies any shortness of breath, chest pain, nausea, vomiting, abdominal pain or diarrhea. Patient has no personal history of malignancy, has been compliant with her routine mammograms and colonoscopy. 04/08/19 Patient seen in the morning, comfortable, no complaints overnight, scheduled for thrombolysis of PE by IR later today. Patient denies any shortness of breath, chest pain, nausea, vomiting, abdominal pain or diarrhea. 04/09/19 Patient seen in the morning, comfortable, no acute events overnight, remains asymptomatic, has received TPA while pulmonary artery catheter overnight, scheduled to undergo repeat imaging later today. 10 point review of system is negative except for above PHYSICAL EXAMINATION: VITAL SIGNS: Please see below. GENERAL: No distress HEENT: Normocephalic, atraumatic, moist mucous membranes NECK: Supple CARDIOVASCULAR EXAMINATION: S1, S2, systolic murmur appreciated RESPIRATORY EXAMINATION: Scattered rhonchi, no wheezing ABDOMINAL EXAMINATION: Soft, nontender, nondistended, positive bowel sounds EXTREMITIES: Left lower extremity with edema SKIN: No rash NEUROLOGICAL EXAMINATION: Alert and oriented 3, no focal deficits PSYCHIATRIC EXAMINATION: Calm and cooperative LABORATORY DATA: See below. IMAGING: Lower extremity Doppler showing extensive left lower extremity DVT. CTA showing saddle embolism with extensive clot burden in both of the lungs MICROBIOLOGY: Please see below. ASSESSMENT: 73-year-old female with past medical history of hypertension and asthma being admitted for left lower extremity DVT and saddle embolism with bilateral PEs. PLAN: 1. DVT with PE. Doppler showing extensive left lower extremity DVT, CTA showing saddle embolism with extensive clot burden in both lungs, underwent thrombolysis of PE via pulmonary artery catheter and TPA infusion overnight, no acute events, remains stable and asymptomatic, scheduled for repeat imaging later today; continue heparin drip and ICU monitoring. 2. Hypertension. Continue chlorthalidone 3. Asthma. Continue Singulair DVT prophylaxis: On heparin infusion. GI prophylaxis: PPI VS, I&O, 24H, Fishbone Vital Signs/I&O Vital Signs Date Time Temp Pulse Resp B/P (MAP) Pulse Ox O2 Delivery O2 Flow Rate FiO2 04/09/19 13:50 97.5 69 18 145/70 (95) 99 Room Air 04/09/19 13:10 2 I&O- Last 24 Hours up to 6 AM 04/09/19 06:00 Intake Total 3208.50 ml Output Total 1900 ml Balance 1308.50 ml Laboratory Data 24H LABS Laboratory Tests 2 04/08/19 20:07: Nucleated Red Blood Cells % (auto) 0.0, Activated Partial Thromboplast Time 94.9H, Fibrinogen 455H, Anion Gap 2L, Glomerular Filtration Rate > 60.0, Calcium Level 8.6L 04/09/19 02:43: Nucleated Red Blood Cells % (auto) 0.0, Activated Partial Thromboplast Time 158.7*H, Fibrinogen 460H, Anion Gap 4L, Glomerular Filtration Rate > 60.0, Calcium Level 8.6L, Phosphorus Level 1.9L, Magnesium Level 2.1 04/09/19 05:40: Activated Partial Thromboplast Time 57.7H, Prothrombin Time 13.6, Prothromb Time International Ratio 1.07 04/09/19 13:43: Activated Partial Thromboplast Time 65.1H CBC/BMP Laboratory Tests 04/08/19 20:07 04/09/19 02:43 Microbiology Microbiology 04/09/19 Stool Occult Blood (SAM) - Final, Complete 04/08/19 Stool Occult Blood (SAM) - Final, Complete MISA LEO MD Apr 09, 2019 17:24
[2019-04-09] MEDS: OMEPRAZOLE 20 MG CAP PO SCH (20:06)
[2019-04-09] MEDS: HEPARIN SOD (PORCINE) 5000 UNITS/ML VIAL (J1644 PER 1000UNITS) IV PRN (21:14)
[2019-04-10] VITALS: BP 126/69
[2019-04-10] MEDS: ACETAMINOPHEN TAB 650MG DOSE (2X325MG) PO PRN ×3 (02:32→16:09)
[2019-04-10 02:45] LABS: HEMATOCRIT 36.2 % (36.0-47.0); HEMOGLOBIN 11.6 g/dl (12.0-15.5); MEAN CORPUSCULAR HEMOGLOBIN 31.8 pg (27.0-33.0); MEAN CORPUSCULAR VOLUME 99.2 fl (80.0-96.0); PLATELET COUNT, AUTOMATED 230 10^3/uL (150-450); RED BLOOD COUNT 3.65 10^6/uL (4.00-5.40); WHITE BLOOD COUNT 8.3 10^3/uL (4.0-10.0)
[2019-04-10 03:08] LABS: BLOOD UREA NITROGEN 8 MG/DL (7-18); CALCIUM LEVEL 8.1 MG/DL (8.8-10.2); CARBON DIOXIDE LEVEL 27 MEQ/L (21-32); CHLORIDE LEVEL 110 MEQ/L (98-107); CREATININE FOR GFR 0.62 MG/DL (0.55-1.30); GLOMERULAR FILTRATION RATE > 60.0 (>39); GLUCOSE, FASTING 96 MG/DL (70-100); POTASSIUM SERUM 3.7 MEQ/L (3.5-5.1); SODIUM LEVEL 143 MEQ/L (136-145)
[2019-04-10 04:00] VITALS: BP 114/56
[2019-04-10] MEDS: HEPARIN DRIP 25,000 UNITS in IV 1 EA IV SCH (05:26)
[2019-04-10 08:00] VITALS: BP 124/70
[2019-04-10] MEDS: CHLORTHALIDONE 12.5MG PER 1/2 TABLET PO SCH (08:23)
[2019-04-10] MEDS: MONTELUKAST 10 MG TAB PO SCH (08:23)
[2019-04-10] MEDS ORDERED: traMADol 50 MG TAB PO PRN (11:45)
[2019-04-10 12:00] VITALS: BP 119/71
[2019-04-10] MEDS ORDERED: APIXABAN 5 MG TAB (ELIQUIS) PO ONE (12:30)
[2019-04-10 15:08] VITALS: BP 112/71
--- NOTE | 2019-04-10 17:25 | IPNPDOC ---
Date Seen The patient was seen on 04/10/19. Progress Note HISTORY OF PRESENT ILLNESS: 73-year-old female with past medical history of hypertension and asthma presents from urgent care with left lower extremity DVT. Patient started experiencing left lower extremity swelling and cramping one week ago, went to urgent care yesterday, was sent home with oral steroids and advised to call back if no improvement in leg pain/swelling. Patient continued to have persistent symptoms, underwent outpatient lower extremity Doppler which showed an extensive left lower extremity DVT extending from the common femoral to the popliteal vein, even including superficial femoral vein. Patient had a CTA in the ED which showed a saddle embolus with extensive clot burden in both of her lungs. Patient is hemodynamically stable, on room air, slightly tachycardic. Patient is currently asymptomatic, denies any shortness of breath, chest pain, nausea, vomiting, abdominal pain or diarrhea. Patient has no personal history of malignancy, has been compliant with her routine mammograms and colonoscopy. 04/08/19 Patient seen in the morning, comfortable, no complaints overnight, scheduled for thrombolysis of PE by IR later today. Patient denies any shortness of breath, chest pain, nausea, vomiting, abdominal pain or diarrhea. 04/09/19 Patient seen in the morning, comfortable, no acute events overnight, remains asymptomatic, has received TPA while pulmonary artery catheter overnight, scheduled to undergo repeat imaging later today. 04/10/19 Patient comfortable in bed, no events overnight, no longer having any dyspnea, continues to have mild left lower extremity pain, no other complaints. 10 point review of system is negative except for above PHYSICAL EXAMINATION: VITAL SIGNS: Please see below. GENERAL: No distress HEENT: Normocephalic, atraumatic, moist mucous membranes NECK: Supple CARDIOVASCULAR EXAMINATION: S1, S2 RESPIRATORY EXAMINATION: Scattered rhonchi, no wheezing ABDOMINAL EXAMINATION: Soft, nontender, nondistended, positive bowel sounds EXTREMITIES: Left lower extremity with mild edema SKIN: No rash NEUROLOGICAL EXAMINATION: Alert and oriented 3, no focal deficits PSYCHIATRIC EXAMINATION: Calm and cooperative LABORATORY DATA: See below. IMAGING: Lower extremity Doppler showing extensive left lower extremity DVT. CTA showing saddle embolism with extensive clot burden in both of the lungs MICROBIOLOGY: Please see below. ASSESSMENT: 73-year-old female with past medical history of hypertension and asthma being admitted for left lower extremity DVT and saddle embolism with bilateral PEs. PLAN: 1. DVT with PE. Doppler showing extensive left lower extremity DVT, CTA showing saddle embolism with extensive clot burden in both lungs, underwent thrombolysis of PE via pulmonary artery catheter and TPA infusion, no complications, pulmonary artery catheter removed and IVC filter placed yesterday, switched heparin infusion to Eliquis's today, downgrade patient to [facility], tentatively plan for discharge tomorrow. 2. Hypertension. Continue chlorthalidone 3. Asthma. Continue Singulair DVT prophylaxis: On Eliquis GI prophylaxis: PPI VS, I&O, 24H, Fishbone Vital Signs/I&O Vital Signs Date Time Temp Pulse Resp B/P (MAP) Pulse Ox O2 Delivery O2 Flow Rate FiO2 04/10/19 15:08 97.7 105 20 112/71 (85) 97 Room Air 04/09/19 13:10 2 I&O- Last 24 Hours up to 6 AM 04/10/19 05:59 Intake Total 3185 ml Output Total 1775 ml Balance 1410 ml Laboratory Data 24H LABS Laboratory Tests 2 04/09/19 20:24: Activated Partial Thromboplast Time 59.5H 04/10/19 02:38: Activated Partial Thromboplast Time 108.3H, Nucleated Red Blood Cells % (auto) 0.0, Anion Gap 6L, Glomerular Filtration Rate > 60.0, Calcium Level 8.1L 04/10/19 08:48: Activated Partial Thromboplast Time 65.9H CBC/BMP Laboratory Tests 04/10/19 02:38 Microbiology Microbiology 04/09/19 Stool Occult Blood (SAM) - Final, Complete 04/08/19 Stool Occult Blood (SAM) - Final, Complete MISA LEO MD Apr 10, 2019 17:25
[2019-04-10] MEDS ORDERED: ELIQ5TAB PO (17:26)
[2019-04-10] MEDS: APIXABAN 5 MG TAB (ELIQUIS) PO SCH (20:00)
[2019-04-10] MEDS: OMEPRAZOLE 20 MG CAP PO SCH (20:00)
[2019-04-10] MEDS ORDERED: APIXABAN 5 MG TAB (ELIQUIS) PO SCH (21:00)
[2019-04-10 22:00] VITALS: BP 113/67
[2019-04-11 00:07] LABS: ANTI THROMBIN 3 ANTIGEN IMMUNO 130 % (72-124); ANTI THROMBIN 3 FUNCT ACTIVITY 148 % (75-135); ANTINUCLEAR ANTIBODIES DIRECT Negative (Negative); CARDIOLIPIN IGA ANTIBODY <9 APL U/mL (0-11); CARDIOLIPIN IGG ANTIBODY <9 GPL U/mL (0-14); CARDIOLIPIN IGM ANTIBODY <9 MPL U/mL (0-12); PROTEIN C FUNCTIONAL ACTIVITY 193 % (73-180); PROTEIN S FUNCTIONAL ACTIVITY 113 % (63-140)
[2019-04-11] MEDS: ACETAMINOPHEN TAB 650MG DOSE (2X325MG) PO PRN ×2 (02:57→08:12)
[2019-04-11 06:00] VITALS: BP 106/67
[2019-04-11 06:01] LABS: MEAN CORPUSCULAR HGB CONC 32.4 g/dl (32.0-36.5); MEAN CORPUSCULAR VOLUME 98.8 fl (80.0-96.0); PLATELET COUNT, AUTOMATED 290 10^3/uL (150-450); RED BLOOD COUNT 3.44 10^6/uL (4.00-5.40); WHITE BLOOD COUNT 7.7 10^3/uL (4.0-10.0)
[2019-04-11 06:32] LABS: BLOOD UREA NITROGEN 10 MG/DL (7-18); CALCIUM LEVEL 8.8 MG/DL (8.8-10.2); CARBON DIOXIDE LEVEL 30 MEQ/L (21-32); CHLORIDE LEVEL 106 MEQ/L (98-107); CREATININE FOR GFR 0.79 MG/DL (0.55-1.30); GLOMERULAR FILTRATION RATE > 60.0 (>39); GLUCOSE, FASTING 94 MG/DL (70-100); MAGNESIUM LEVEL 2.1 MG/DL (1.8-2.4); PHOSPHORUS LEVEL 2.7 MG/DL (2.5-4.9); POTASSIUM SERUM 3.7 MEQ/L (3.5-5.1); SODIUM LEVEL 140 MEQ/L (136-145)
[2019-04-11] MEDS: CHLORTHALIDONE 12.5MG PER 1/2 TABLET PO SCH (08:13)
[2019-04-11] MEDS: MONTELUKAST 10 MG TAB PO SCH (08:13)
[2019-04-11] MEDS: APIXABAN 5 MG TAB (ELIQUIS) PO SCH (08:13)
[2019-04-11] MEDS ORDERED: POTASSIUM CHLORIDE 10 MEQ SR TABLET PO ONE (09:00)
[2019-04-11 14:00] VITALS: BP 150/60
--- NOTE | 2019-04-11 19:09 | DS.PDOC ---
Discharge Summary General Date of Admission Apr 07, 2019 at 15:20 Date of Discharge 04/11/19 Attending Physician: MISA LEO MD Discharge Summary PROCEDURES PERFORMED DURING STAY: None. ADMITTING DIAGNOSES: 1. Left lower extremity DVT, saddle pulmonary embolism. DISCHARGE DIAGNOSES: 1. Left lower extremity DVT, saddle pulmonary embolism. COMPLICATIONS/CHIEF COMPLAINT: Htn Left Leg Dvt Saddle Pulmonary Embolus. HISTORY OF PRESENT ILLNESS: 73-year-old female with past medical history of hypertension, was admitted for left lower show any DVT and saddle pulmonary embolism. Patient was clinically stable throughout her hospital stay, remained on room air, TTE showed right heart strain with elevated right ventricular systolic pressure. Patient was given localized TPA via pulmonary artery catheter with great result. Patient also had an IVC filter placed by interventional radiology. Patient was initially treated with heparin GTT which was then switched to Eliquis. Patient is advised to take Eliquis 10 mg twice a day for total of 7 days followed by 5 mg twice a day. Patient is advised to follow with hematology oncology, interventional radiology and PCP after discharge. Patient is clinically and hemodynamically stable for discharge and outpatient follow-up at this time. HOSPITAL COURSE: As above. DISCHARGE MEDICATIONS: Please see below. ALLERGIES: Please see below. PHYSICAL EXAMINATION: VITAL SIGNS: Please see below. GENERAL: No distress HEENT: Normocephalic, atraumatic, moist mucous membranes NECK: Supple CARDIOVASCULAR EXAMINATION: S1, S2, no murmurs RESPIRATORY EXAMINATION: Clear to auscultation, no wheezing ABDOMINAL EXAMINATION: Soft, nontender, nondistended, positive bowel sounds EXTREMITIES: Left lower extremity edema SKIN: No rash NEUROLOGICAL EXAMINATION: Alert and oriented 3, no focal deficits PSYCHIATRIC EXAMINATION: Calm and cooperative LABORATORY DATA: Please see below. IMAGING: imaging consistent with left lower extremity DVT and saddle embolism with extensive pulmonary clot burden bilaterally PROGNOSIS: Fair ACTIVITY: As tolerated. DIET: Cardiac DISCHARGE PLAN: Follow with hematology oncology, interventional radiology PCP within 1-2 weeks DISPOSITION: 01 Home, Self-Care. DISCHARGE INSTRUCTIONS: 1. As above. DISCHARGE CONDITION: Stable. TIME SPENT ON DISCHARGE: Greater than 33 minutes. Vital Signs/I&Os Vital Signs Date Time Temp Pulse Resp B/P (MAP) Pulse Ox O2 Delivery O2 Flow Rate FiO2 04/11/19 14:00 97.4 78 18 150/60 (90) 97 Room Air 04/09/19 13:10 2 I&O- Last 24 Hours up to 6 AM 04/11/19 06:00 Intake Total 940 ml Output Total 250 ml Balance 690 ml Laboratory Data Labs 24H Laboratory Tests 2 04/11/19 05:33: Nucleated Red Blood Cells % (auto) 0.0, Anion Gap 4L, Glomerular Filtration Rate > 60.0, Calcium Level 8.8, Phosphorus Level 2.7#, Magnesium Level 2.1 CBC/BMP Laboratory Tests 04/11/19 05:33 Microbiology Microbiology 04/09/19 Stool Occult Blood (SAM) - Final, Complete 04/08/19 Stool Occult Blood (SAM) - Final, Complete Discharge Medications Scheduled Alendronate Sodium (Alendronate Sodium) 70 Mg Tablet, 70 MG PO QWEEK, (Reported) NEW MEDICATION, HAS NOT STARTED Apixaban (Eliquis) 5 Mg Tablet, 10 MG PO BID 10 mg BID x6 days, follwed by 5 mg BID. Chlorthalidone (Chlorthalidone) 25 Mg Tablet, 12.5 MG PO DAILY, (Reported) HALF TABLET Cholecalciferol (Vitamin D3) (Vitamin D3) 2,000 Unit Tablet, 2,000 UNIT PO DAILY, (Reported) Glucosamine Sulfate Dipot Chlr (Glucosamine) 1,000 Mg Tablet, 1,000 MG PO DAILY, (Reported) Montelukast Sodium (Montelukast Sodium) 10 Mg Tablet, 10 MG PO DAILY, (Reported) Multivitamin (Multivitamins) 1 Each Tablet, 1 TAB PO DAILY, (Reported) [place]-3 Fatty Acids/Fish Oil (Fish Oil 1,000 mg Capsule) 1 Each Capsule, 1,000 MG PO DAILY, (Reported) Omeprazole (Omeprazole) 20 Mg Capsule.dr, 20 MG PO DAILY, (Reported) NEW MEDICATION Scheduled PRN Acetaminophen (Acetaminophen ER) 650 Mg Tablet.er, 1,300 MG PO Q8H PRN for PAIN, (Reported) Albuterol Sulfate (Proair Hfa) 8.5 Gm Hfa.aer.ad, 2 PUFFS INH QID PRN for SHORTNESS OF BREATH, (Reported) Fluticasone Propionate (Fluticasone Propionate) 16 Gm [place].susp, 1 SPRAY NARES BID PRN for CONGESTION, (Reported) Valacyclovir HCl (Valacyclovir) 1,000 Mg Tablet, 1,000 MG PO DAILYPRN PRN for COLD SORES, (Reported) Allergies Coded Allergies: No Known Allergies (Verified Allergy, Unknown, 04/07/19) MISA LEO MD Apr 11, 2019 19:09
== END 2019-04-11 14:40 | disposition home or self-care (01) | DRG 252 ==
LOC: M ED 11:09 → M ED INP 15:20 → ENRESERVTM 16:02 → ENRESERVDT 16:02 → M ICU 17:39 → M MSPAV 04-10 15:04
PROVIDERS: ADMIT Internal Medicine; ATTEND Internal Medicine
PROC: 3E06317 Introduction of Other Thrombolytic into Central Artery, Percutaneous Approach (ICD-10-PCS; 2019-04-08)
PROC: B31S1ZZ Fluoroscopy of Right Pulmonary Artery using Low Osmolar Contrast (ICD-10-PCS; 2019-04-08)
PROC: 03CY3ZZ Extirpation of Matter from Upper Artery, Percutaneous Approach (ICD-10-PCS; 2019-04-09)
PROC: B5191ZZ Fluoroscopy of Inferior Vena Cava using Low Osmolar Contrast (ICD-10-PCS; 2019-04-09)
PROC: 06H03DZ Insertion of Intraluminal Device into Inferior Vena Cava, Percutaneous Approach (ICD-10-PCS; principal; 2019-04-09 12:30)
DX: I82.402 Acute embolism and thrombosis of unspecified deep veins of left lower extremity (principal); I26.92 Saddle embolus of pulmonary artery without acute cor pulmonale; I10 Essential (primary) hypertension; Z79.899 Other long term (current) drug therapy; J45.909 Unspecified asthma, uncomplicated

== ENCOUNTER → 2019-04-07 | Outpatient (CLI) | payer MEDICARE ==
[~2019-04-07] MED LIST changes: +ALTEPLASE 2 MG/2 ML VIAL (J2997 PER 1MG) As Ordered ONE; -ELIQ5TAB PO; +HEPARIN 1,000 UNITS/ML 10ML VIAL (FOR RADIOLOGY& DIALYSIS ONLY)(J1644-10) As Ordered ONE; +ISOVUE-300 61% 50ML VIAL (Q9967) As Ordered ONE; +LIDOCAINE 1% MDV 20ML VIAL As Ordered ONE; +METOPROLOL 5 MG/5 ML VIAL As Ordered ONE; +MIDAZOLAM INJ 2 MG/2 ML VIAL (J2250) As Ordered ONE; +diphenhydrAMINE INJ 50MG/ML VIAL (J1200) As Ordered ONE; +fentaNYL 100 MCG/2 ML INJECTION (J3010) As Ordered ONE
--- NOTE | 2019-04-07 11:03 | REP ---
Left lower extremity deep vein duplex ultrasound for thrombus: There is extensive occlusive thrombus extending from the popliteal vein to the common femoral vein. Extensive thrombus is also identified in the profunda femoral vein. . No thrombus is identified in the saphenous vein. Impression: Complete occlusive thrombosis of the deep venous system of the left lower extremity. Electronically Signed by Cruzito Figueroa MD 04/07/2019 10:54 A
== END ==
LOC: M RAD 10:10
PROVIDERS: ATTEND Physician Assistant
DX: I82.402 Acute embolism and thrombosis of unspecified deep veins of left lower extremity (principal); M25.562 Pain in left knee; R22.42 Localized swelling, mass and lump, left lower limb

== ENCOUNTER → 2019-04-28 | Outpatient (CLI) | payer MEDICARE ==
[~2019-04-28] MED LIST changes: +ACETAMINOPHEN 325 MG TAB As Ordered ONE; +ADV250INH INH; +ELIQ5TAB PO; -HEPARIN 1,000 UNITS/ML 10ML VIAL (FOR RADIOLOGY& DIALYSIS ONLY)(J1644-10) As Ordered ONE; -METOPROLOL 5 MG/5 ML VIAL As Ordered ONE; -MONT10TA2 PO; +MONT10TA4 PO; +PROMETHAZINE INJ 25 MG/ML VIAL (J2550) As Ordered ONE; +VALA1TAB5 PO; -VALA1TAB64 PO
--- NOTE | 2019-04-28 13:23 | IRHP ---
[facility] IR Pre-Procedure H & P General Date of Service: Apr 28, 2019 Procedure: Same Day Surgery Interval History and Physical I have seen the patient and reviewed last H & P performed within 30 days. There is no significant interval change. History of Present Illness Chief Complaint The patient is a 74-year-old female admitted with a reason for visit of DVT. PRE-PROCEDURE DIAGNOSIS: dvt HEART: normal rate. LUNGS: normal breathing at rest. ASA Classification ASA Classification: II-Mild systemic disease Mallampati Score: II NPO: Yes Problems with prior sedation: No Obstructive Sleep Apnea: No Plan moderate sedation Allergies Coded Allergies: No Known Allergies (Verified Allergy, Unknown, 04/07/19) Home Medications Scheduled Alendronate Sodium (Alendronate Sodium), 70 MG PO QWEEK, (Reported) Apixaban (Eliquis), 10 MG PO BID Chlorthalidone (Chlorthalidone), 12.5 MG PO DAILY, (Reported) Cholecalciferol (Vitamin D3) (Vitamin D3), 2,000 UNIT PO DAILY, (Reported) Glucosamine Sulfate Dipot Chlr (Glucosamine), 1,000 MG PO DAILY, (Reported) Montelukast Sodium (Montelukast Sodium), 10 MG PO DAILY, (Reported) Multivitamin (Multivitamins), 1 TAB PO DAILY, (Reported) [place]-3 Fatty Acids/Fish Oil (Fish Oil 1,000 mg Capsule), 1,000 MG PO DAILY, (Reported) Omeprazole (Omeprazole), 20 MG PO DAILY, (Reported) Salmeterol/Fluticasone (Advair 250-50 Diskus), 1 PUFF INH DAILY, (Reported) Scheduled PRN Acetaminophen (Acetaminophen ER), 1,300 MG PO Q8H PRN for PAIN, (Reported) Albuterol Sulfate (Proair Hfa), 2 PUFFS INH QID PRN for SHORTNESS OF BREATH, (Reported) Fluticasone Propionate (Fluticasone Propionate), 1 SPRAY NARES BID PRN for CONGESTION, (Reported) Valacyclovir HCl (Valacyclovir), 1,000 MG PO DAILYPRN PRN for COLD SORES, (Reported) VS, I&O, 24H, Fishbone Vital Signs/I&O Vital Signs Date Time Temp Pulse Resp B/P (MAP) Pulse Ox O2 Delivery O2 Flow Rate FiO2 04/28/19 13:00 97.0 88 18 97 Room Air GABRIELE FAN MD Apr 28, 2019 13:23
--- NOTE | 2019-04-28 18:19 | POST-OPPD ---
Postoperative Procedure Note Date Of Procedure: Apr 28, 2019 Time Of Procedure: 18:18 PREOPERATIVE DIAGNOSIS: LLE DVT POSTOPERATIVE DIAGNOSIS: same FINDINGS: LLE dvt popliteal to common femoral PROCEDURE: percutaneous mechanical thrombectomy SURGEON: kody ANESTHESIA: mod sed ESTIMATED BLOOD LOSS: < 5 ml COMPLICATIONS: none POSTOPERATIVE CONDITION: stable GABRIELE FAN MD Apr 28, 2019 18:19
[2019-04-28 19:57] VITALS: BP 119/77
--- NOTE | 2019-04-29 15:07 | REP ---
IR Left leg venography. IR Ultrasound guided right common femoral vein access. IR Ultrasound guided left popliteal vein access. IR Mechanical thrombectomy. IR Ultrasound right common femoral vein. IR Ultrasound left popliteal vein. IR Moderate sedation. Clinical information: Extensive left lower extremity deep vein thrombosis extending into common femoral vein with pain and swelling. IVC filter already in place. Physician: Dr. East. Procedure: The patient was advised of the benefits, risks and alternatives of the procedure and informed consent was obtained. The time-out was performed with verification of the patient's name MRN, site of procedure and type of procedure to be performed. Moderate sedation was performed by the physician including the presence of an independent trained observer who assisted in monitoring the patient's level of consciousness and physiologic status. Following the administration of Fentanyl and Versed, the physician spent 180 minutes of continuous face to face time with the patient. A teacher advisor radiograph of the left thigh reveals no gross abnormality. Ultrasound of the right common femoral vein demonstrates patent and compressible right common femoral vein. The patient was positioned in the supine position on the angiographic table. The right common femoral vein was accessed with a micropuncture kit under ultrasound guidance. A wire was advanced into the right iliac vein under fluoroscopy guidance. The needle was removed over the wire and a micro sheath was advanced over the wire into the iliac vein. The micro wire was exchanged for an 035 wire and an 8-Vincentian sheath was advanced under fluoroscopy guidance into the right iliac vein. A glide wire and diagnostic catheter were used under fluoroscopy guidance to catheterize the left common iliac vein. The catheter was advanced up and over the bifurcation under fluoroscopy guidance into the left common iliac vein. The catheter and wire in conjunction were used under fluoroscopy guidance to catheterize the left femoral vein. The catheter was advanced over the wire into the left femoral vein. Contrast venography was performed and this demonstrates filling of collaterals within the left lower extremity. The catheter is occlusive in the catheterized vein. No filling of the peripheral deep venous structures from this location. No filling defects. The catheter was retracted back to the left external iliac vein. In conjunction with a Glidewire the catheter was used to catheterize the inflow of the suspected thrombosed common femoral vein. After many attempts, distal catheterization was achieved. A venogram was performed and this demonstrates catheterization of a small collateral vessel. The peripheral deep venous system is not seen. Due to difficulties cannulating the deep venous system from above, I decided to access the thrombosed popliteal vein. The right groin sheath and catheter was secured to the skin. The patient was positioned in the prone position. Ultrasound of the peripheral left popliteal vein demonstrates occlusive thrombus within the left popliteal vein with expansion. The left popliteal vein was then accessed with a micropuncture kit under ultrasound guidance. An 018 wire was advanced under fluoroscopy guidance into the femoral vein and further up into the external iliac vein. The needle was removed over the wire and exchanged for a micro sheath. The diagnostic catheter was advanced over the wire under fluoroscopy guidance into the femoral vein. The wire was exchanged for an 035 wire. The catheter and sheath were removed over the wire and a 8-Vincentian sheath was advanced over the wire under fluoroscopy guidance into the popliteal vein. An over the wire venogram was performed and this demonstrates extensive collateralization within the distal thigh and string like filling of the deep venous system. Intricate collateral flow indicates poor flow through the deep venous system. Further venography was performed in the proximal thigh and this demonstrates string like femoral vein extending back to the external iliac vein and common iliac vein. There is no thrombus within the common iliac or external iliac vein. There is thrombus within the left common femoral, femoral and popliteal vein. Filling of collaterals in the proximal left thigh including saphenous system indicate poor flow through the deep system. A 6-Vincentian [place] thrombectomy catheter was advanced over the wire under fluoroscopy guidance into the left common femoral vein. This was used under fluoroscopy guidance, with a separator, to perform left common femoral and femoral vein thrombectomy. 3 mg of TPA was administered into the vein. Due to poor suction, the catheter was then exchanged over the wire for a 8-Vincentian CAT indigo thrombectomy device. This was used under fluoroscopy guidance, to perform mechanical thrombectomy in the left common femoral, femoral and proximal popliteal vein. After significant visible clot retrieval, a follow-up venogram was performed and this demonstrates improved flow through the left femoral vein. No further filling of collaterals in the thigh. No extravasation. The sheath and catheter at both sites were removed, pressure held and hemostasis achieved. A sterile dressing was applied to the site. The patient tolerated the procedure well and was returned to PRU in stable condition. EBL: Less than 5 ml. Complications: None. Impression: 1. Left lower extremity deep vein thrombosis extending into left common femoral vein with extensive collateralization in the thigh. 2. Successful left deep venous mechanical thrombectomy with improved flow in the deep venous system. 3. Continue Eliquis and ambulate. Patient to follow up in IR clinic in 2 weeks. Thank you this referral. CC Dr Benjamin Tesfaye Electronically Signed by Kandy East MD 04/29/2019 03:06 P
== END ==
LOC: M IRPRO 12:32
PROVIDERS: ATTEND Radiology Diagnostic Radiology
DX: I82.402 Acute embolism and thrombosis of unspecified deep veins of left lower extremity (principal)
CPT/HCPCS: 36012; 37187; 75820; 99152; 99153; C1769; C1887; C1894; J1200; J1644; J2250; J2997; J3010; Q9967

== ENCOUNTER → 2019-05-13 | Outpatient (POV) | payer MEDICARE ==
[~2019-05-13] VITALS: Ht 152.4 cm; Wt 78.6 kg
[~2019-05-13] MED LIST changes: -ACETAMINOPHEN 325 MG TAB As Ordered ONE; -ALTEPLASE 2 MG/2 ML VIAL (J2997 PER 1MG) As Ordered ONE; -ISOVUE-300 61% 50ML VIAL (Q9967) As Ordered ONE; -LIDOCAINE 1% MDV 20ML VIAL As Ordered ONE; -MIDAZOLAM INJ 2 MG/2 ML VIAL (J2250) As Ordered ONE; -PROMETHAZINE INJ 25 MG/ML VIAL (J2550) As Ordered ONE; -diphenhydrAMINE INJ 50MG/ML VIAL (J1200) As Ordered ONE; -fentaNYL 100 MCG/2 ML INJECTION (J3010) As Ordered ONE
[2019-05-13 13:05] VITALS: BP 119/86
--- NOTE | 2019-05-15 09:20 | IRPN ---
[facility] IR Progress Note IR Progress Note DATE: May 13, 2019 FOLLOW-UP: Status post PE thrombolysis and left lower extremity DVT thrombectomy. Patient still has some discomfort in the lower left calf. She denies shortness of breath. ON EXAMINATION: Patient is wearing thigh-high compression stockings as advised. No significant limb width discrepancy between the 2 lower extremities. Motor 5 out of 5. No redness. No skin discoloration. Calf symmetric bilaterally. IMPRESSION: Doing well status post PE thrombolysis and left lower extremity DVT thrombolysis. Continue Eliquis, compression stockings, ambulation and leg elevation 3 times a day (above the level of the heart for 30 minutes). I will follow the patient up in October to discuss filter retrieval. Thank you for this referral Allergies Coded Allergies: No Known Allergies (Verified Allergy, Unknown, 04/07/19) VS,Fishbone, I+O VS, Fishbone, I+O Vital Signs Date Time Temp Pulse Resp B/P (MAP) Pulse Ox O2 Delivery O2 Flow Rate FiO2 05/13/19 13:05 97.9 87 18 119/86 (97) 96 Room Air GABRIELE FAN MD May 15, 2019 09:20
== END ==
LOC: M IRPOV 12:55
PROVIDERS: ATTEND Radiology Diagnostic Radiology
DX: Z48.812 Encounter for surgical aftercare following surgery on the circulatory system (principal); Z86.718 Personal history of other venous thrombosis and embolism

== ENCOUNTER → 2019-08-19 | Outpatient (CLI) | payer MEDICARE ==
--- NOTE | 2019-08-19 17:31 | ECGEPIP ---
[facility] Test Date: 2019-08-19 Pat Name: MELONIE HERNANDEZ Department: Room: - Gender: Female Country Director: MARYANA : 1945 Requested By: Benjamin Richard Order Number: [id number] Reading MD: Milad Milligan Measurements Intervals [place] Rate: 62 P: 38 OR: 140 QRS: -10 QRSD: 98 T: 35 QT: 458 QTc: 465 Interpretive Statements Normal sinus rhythm Left atrial enlargement Some delay in anterior R-wave progression Nonspecific repolarization abnormalities No significant change since 04/07/2019 Electronically Signed on 08-19-2019 17:30:51 EDT by Milad Milligan
== END ==
LOC: M EKG 07:03
PROVIDERS: ATTEND Internal Medicine Cardiovascular Disease
DX: I26.99 Other pulmonary embolism without acute cor pulmonale (principal)

== ENCOUNTER → 2019-09-09 | Outpatient (CLI) | payer MEDICARE ==
--- NOTE | 2019-09-09 15:12 | REP ---
REASON FOR EXAM: Back pain. COMPARISON: None. There is a levoconvex thoracolumbar curve. The pedicles appear to be intact bilaterally. The bones are demineralized. Vertebral body height is within normal limits. There is posterior disc space narrowing which is moderate at every level. Degenerative facet joint changes are seen at every level bilaterally. There is air density in the L5-S1 disc space consistent with vacuum phenomena from degenerative disc disease. There does appear to be a grade 1 L5 upon S1 spondylolisthesis likely secondary to degenerative facet joint changes. An inferior vena cava filter is seen on the right, the tip of which is at the level of the inferior endplate of L1. IMPRESSION: Chronic changes and other findings as described above. Electronically Signed by Francis Lee DO 09/09/2019 05:28 P
--- NOTE | 2019-09-09 15:20 | REP ---
REASON: Severe pain. No history of trauma. FINDINGS: No acute fracture or destructive osseous lesion. Since the patient has severe coccygeal pain, I would recommend followup with an MRI. Electronically Signed by Francis Lee DO 09/09/2019 05:28 P
== END ==
LOC: M WUC 09:54
PROVIDERS: ATTEND Physician Assistant
DX: S39.012A Strain of muscle, fascia and tendon of lower back, initial encounter (principal); X58.XXXA Exposure to other specified factors, initial encounter; Y92.89 Other specified places as the place of occurrence of the external cause

== ENCOUNTER → 2019-09-19 | Outpatient (CLI) | payer MEDICARE ==
[2019-09-19 12:58] LABS: ALBUMIN 3.4 GM/DL (3.2-5.2); BILIRUBIN,TOTAL 0.2 MG/DL (0.2-1.0); CALCIUM LEVEL 9.4 MG/DL (8.8-10.2); CHOLESTEROL RISK RATIO 3.656 (<5); CREATININE FOR GFR 1.06 MG/DL (0.55-1.30); GLOMERULAR FILTRATION RATE 54.2 (>39); MAGNESIUM LEVEL 2.1 MG/DL (1.8-2.4); POTASSIUM SERUM 4.5 MEQ/L (3.5-5.1); TOTAL PROTEIN 6.9 GM/DL (6.4-8.2)
== END ==
LOC: M WUC 10:32
PROVIDERS: ATTEND Internal Medicine
DX: E78.00 Pure hypercholesterolemia, unspecified (principal); I10 Essential (primary) hypertension

== ENCOUNTER → 2019-10-07 | Outpatient (POV) | payer MEDICARE ==
--- NOTE | 2019-11-06 14:18 | IRPN ---
[facility] IR Progress Note IR Progress Note DATE: Oct 07, 2019 Patient agreed to this telephone follow-up. Duration of call 10 minutes. FOLLOW-UP: 62-year-old female with history of saddle pulmonary embolus and left lower extremity femoropopliteal DVT in April 2019, treated with pulmonary thrombolysis and left lower extremity DVT thrombectomy. She responded well to therapy. She also had an IVC filter placed at that time. Patient is now stable on Eliquis. No new lower extremity swelling or pain. No increased shortness of breath, chest pain cough or hemoptysis. ON EXAMINATION: No video on patient side IMPRESSION: Doing well status post PE thrombolysis and left lower extremity femoropopliteal DVT thrombectomy. She is now on anticoagulation and fully anticoagulated. She does wear compression stockings. We discussed the benefits of IVC filter removal when it is no longer needed. She is under the follow-up of cardiology and has had multiple echoes since April. If the filter is no longer needed and she is able to be systemically anticoagulated, I would suggest removal of the filter. We can plan for this in February. Thank you for this referral CC Dr Benjamin Tesfaye Cc Dr. Milad Milligan Allergies Coded Allergies: No Known Allergies (Verified Allergy, Unknown, 04/07/19) GABRIELE FAN MD Nov 06, 2019 14:18
== END ==
LOC: M IRPOV 11:00
PROVIDERS: ATTEND Radiology Diagnostic Radiology
DX: Z86.718 Personal history of other venous thrombosis and embolism (principal); Z79.01 Long term (current) use of anticoagulants; Z95.828 Presence of other vascular implants and grafts

== ENCOUNTER → 2020-01-06 | Outpatient (CLI) | payer MEDICARE ==
--- NOTE | 2020-01-07 09:52 | REPPI ---
INDICATION: R06.02 SHORTNESS OF BREATH. COMPARISON: Comparison chest x-ray April 27, 2017. TECHNIQUE: Two views.. FINDINGS: The lungs are well inflated and free of infiltrate. The pleural angles are sharp. The heart size is normal. Pulmonary vasculature is not increased. No significant bony abnormality is seen. There is minimal linear fibrosis at the left base. A vena cava filter is noted in the upper abdomen. There is a levoconvex thoracic scoliotic curve. IMPRESSION: No active cardiopulmonary disease.. <Electronically signed by Isaac Salazar > 01/07/20 [id number]
== END ==
LOC: M PLAIMG 15:12
PROVIDERS: ATTEND Physician Assistant
DX: R06.02 Shortness of breath (principal)

== ENCOUNTER → 2020-02-09 | Outpatient (CLI) | payer MEDICARE ==
[~2020-02-09] MED LIST changes: +GABA-1171 PO; +ISOVUE-300 61% 50ML VIAL As Ordered ONE; +LIDOCAINE 1% MDV 20ML VIAL As Ordered ONE; +MIDAZOLAM INJ 2MG/2ML VIAL (J2250 PER 1MG) As Ordered ONE; -MONT10TA4 PO; +MONT5TAB2 PO; +TIZA2TA PO; +diphenhydrAMINE 50MG/ML VIAL (J1200) As Ordered ONE; +fentaNYL 100 MCG/2 ML INJECTION (J3010) As Ordered ONE
[2020-02-09 13:59] LABS: HEMATOCRIT 36.9 % (36.0-47.0); HEMOGLOBIN 11.6 g/dl (12.0-15.5); MEAN CORPUSCULAR HEMOGLOBIN 30.8 pg (27.0-33.0); MEAN CORPUSCULAR HGB CONC 31.4 g/dl (32.0-36.5); MEAN CORPUSCULAR VOLUME 97.9 fl (80.0-96.0); PLATELET COUNT, AUTOMATED 309 10^3/uL (150-450); RED BLOOD COUNT 3.77 10^6/uL (4.00-5.40); WHITE BLOOD COUNT 7.8 10^3/uL (4.0-10.0)
--- NOTE | 2020-02-09 14:05 | IRHP ---
[facility] IR Pre-Procedure H & P General Date of Service: Feb 09, 2020 Procedure: Same Day Surgery Interval History and Physical I have seen the patient and reviewed last H & P performed within 30 days. There is no significant interval change. History of Present Illness Chief Complaint The patient is a 74-year-old female admitted with a reason for visit of PE. PRE-PROCEDURE DIAGNOSIS:dvt. jarod AC. filter no longer needed. HEART:normal rate LUNGS: normal breathing at rest. ASA Classification ASA Classification: III-Severe systemic dis. Mallampati Score: II NPO: Yes Problems with prior sedation: No Obstructive Sleep Apnea: No Plan moderate sedation Allergies Coded Allergies: No Known Allergies (Verified Allergy, Unknown, 04/07/19) Home Medications Scheduled Apixaban (Eliquis), 10 MG PO BID Chlorthalidone (Chlorthalidone), 25 MG PO DAILY, (Reported) Cholecalciferol (Vitamin D3) (Vitamin D3), 2,000 UNIT PO DAILY, (Reported) Gabapentin (Gabapentin), 100 MG PO TID, (Reported) Montelukast Sodium (Montelukast Sodium), 10 MG PO DAILY, (Reported) Multivitamin (Multivitamins), 1 TAB PO DAILY, (Reported) Artie-3 Fatty Acids/Fish Oil (Fish Oil 1,000 mg Capsule), 1,000 MG PO DAILY, (Reported) Omeprazole (Omeprazole), 20 MG PO DAILY, (Reported) Salmeterol/Fluticasone (Advair 250-50 Diskus), 1 PUFF INH DAILY, (Reported) Tizanidine HCl (Tizanidine HCl), 2 MG PO TID, (Reported) Scheduled PRN Acetaminophen (Acetaminophen ER), 1,300 MG PO Q8H PRN for PAIN, (Reported) Fluticasone Propionate (Fluticasone Propionate), 1 SPRAY NARES BID PRN for CONGESTION, (Reported) Valacyclovir HCl (Valacyclovir), 1,000 MG PO DAILYPRN PRN for COLD SORES, (Reported) Discontinued Medications Albuterol Sulfate (Proair Hfa), 2 PUFFS INH QID PRN for SHORTNESS OF BREATH, (Reported) Discontinued Reason: PCP discontinued med Alendronate Sodium (Alendronate Sodium), 70 MG PO QWEEK, (Reported) Discontinued Reason: Pt states not taking Glucosamine Sulfate Dipot Chlr (Glucosamine), 1,000 MG PO DAILY, (Reported) Discontinued Reason: Pt states not taking VS, I&O, 24H, Fishbone Vital Signs/I&O Vital Signs Date Time Temp Pulse Resp B/P (MAP) Pulse Ox O2 Delivery O2 Flow Rate FiO2 02/09/20 13:53 98 78 18 98 Room Air Laboratory Data 24H LABS Laboratory Tests 2 02/09/20 13:33: Nucleated Red Blood Cells % (auto) 0.0 CBC/BMP Laboratory Tests 02/09/20 13:33 GABRIELE FAN MD Feb 09, 2020 14:05
[2020-02-09 14:08] LABS: INR 0.91; PROTHROMBIN TIME 12.4 SECONDS (12.5-14.3)
[2020-02-09 14:37] LABS: BLOOD UREA NITROGEN 24 MG/DL (7-18); CALCIUM LEVEL 9.5 MG/DL (8.8-10.2); CARBON DIOXIDE LEVEL 28 MEQ/L (21-32); CHLORIDE LEVEL 104 MEQ/L (98-107); CREATININE FOR GFR 0.96 MG/DL (0.55-1.30); GLOMERULAR FILTRATION RATE > 60.0 (>39); GLUCOSE, FASTING 84 MG/DL (70-100); POTASSIUM SERUM 3.4 MEQ/L (3.5-5.1); SODIUM LEVEL 137 MEQ/L (136-145)
[2020-02-09 16:47] VITALS: BP 139/71
--- NOTE | 2020-02-11 12:17 | POST-OPPD ---
Postoperative Procedure Note Date Of Procedure: Feb 09, 2020 Time Of Procedure: 16:00 IR IVC Filter removal. Inferior vena cavogram. Ultrasound of the right neck. Ultrasound-guided right internal jugular vein access. Clinical Information:History of DVT and PE. Filter placed at time of lower extremity thrombectomy. Now stable on anticoagulation, no further indication for filter. Physician: Dr. East. Procedure: The patient was advised of the benefits, risks, and alternatives of the procedure and informed consent was obtained. A time out was performed with verification of the patient's name, MRN, site of procedure, and type of procedure to be performed. The patient was positioned in the supine position on the angiographic table. The site was prepped and draped in the usual sterile fashion. Moderate sedation was performed by the physician including the presence of an independent trained RN who assisted in monitoring the patient's level of consciousness and physiological status. Following the administration of fentanyl and Versed the physician spent 45 minutes of continuous [id number] time with the patient. Preliminary ultrasound of the right neck was performed, demonstrating patent and compressible right internal jugular vein. The right internal jugular vein was accessed under ultrasound guidance, using a micropuncture kit. A 0.035 wire was placed into the peripheral inferior vena cava. The tract was dilated and the retrieval sheath was advanced over the wire, under fluoroscopy guidance into the peripheral IVC. An inferior venacavogram was then performed, demonstrating a normal caliber inferior vena cava without filling defects. The filter is located at L2. An Ensnare device was then advanced through the filter retrieval sheath and used under fluoroscopy guidance to retrieve the IVC filter. The sheath was advanced over the filter causing complete collapse of the filter and the filter was removed from the body. A follow venogram was performed which demonstrates complete removal of the filter, normal IVC without extravasation or injury. The patient tolerated the procedure well and was returned to the PRU in stable condition. EBL: < 5 mL. Complications:None. Conclusions: 1. Normal cavogram. 2. Successful removal of IVC filter. Thank you for this referral. 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 GABRIELE EAST MD Feb 11, 2020 12:17
== END ==
LOC: M IRPRO 12:28
PROVIDERS: ATTEND Radiology Diagnostic Radiology
DX: Z45.89 Encounter for adjustment and management of other implanted devices (principal); Z86.718 Personal history of other venous thrombosis and embolism; Z79.01 Long term (current) use of anticoagulants; Z79.899 Other long term (current) drug therapy
CPT/HCPCS: 37193; 80048; 85027; 85610; 99152; 99153; C1769; C1773; C1894; J1644; J2250; J3010; Q9967

== ENCOUNTER → 2020-03-15 | Outpatient (REF) | payer MEDICARE ==
[~2020-03-15] MED LIST changes: -ALEN70TA74 PO; +ALEN70TA82 PO; -ISOVUE-300 61% 50ML VIAL As Ordered ONE; -LIDOCAINE 1% MDV 20ML VIAL As Ordered ONE; -MIDAZOLAM INJ 2MG/2ML VIAL (J2250 PER 1MG) As Ordered ONE; -diphenhydrAMINE 50MG/ML VIAL (J1200) As Ordered ONE; -fentaNYL 100 MCG/2 ML INJECTION (J3010) As Ordered ONE
[2020-03-15 15:13] LABS: CHOLESTEROL RISK RATIO 3.265 (<5); MAGNESIUM LEVEL 2.4 MG/DL (1.8-2.4); POTASSIUM SERUM 4.2 MEQ/L (3.5-5.1)
== END ==
LOC: M SFHCPLAZ 09:14
PROVIDERS: ATTEND Internal Medicine
DX: E78.00 Pure hypercholesterolemia, unspecified (principal); I10 Essential (primary) hypertension; M81.0 Age-related osteoporosis without current pathological fracture; Z11.59 Encounter for screening for other viral diseases
CPT/HCPCS: 36415; 80051; 80061; 83735; 96372; G0463; G0472; J0897

== ENCOUNTER → 2020-03-29 | Outpatient (CLI) | payer MEDICARE ==
[~2020-03-29] MED LIST changes: +MONT10TA10 PO; -MONT5TAB2 PO
--- NOTE | 2020-03-29 13:11 | REPMRS ---
Patient History The patient states she has not had a clinical breast exam in over a year. No known family history of cancer. Benign FNA biopsy of the left breast, August 17, 2010. Digital Woman Screen Mammo: March 29, 2020 - Exam #: [id number] Bilateral CC and MLO view(s) were taken. Technologist: Magalie Melvin, Technologist Prior study comparison: October 28, 2018, bilateral digital woman screen mammo performed at [facility]. December 19, 2016, digital woman screen mammo performed at [facility]. March 30, 2015, digital woman screen mammo performed at [facility]. FINDINGS: There are scattered fibroglandular densities. The Volpara volumetric breast density category is:B. There has been no change in the appearance of the mammogram from the prior studies. There is a mild amount of scattered fibroglandular density which is fairly symmetric. There is no interval development of dominant mass, architectural distortion, or grouped microcalcification suggestive of malignancy. 3-D tomosynthesis shows no additional findings. Assessment: BI-RADS/ACR category 1 mammogram. Negative Mammogram. Recommendation Routine screening mammogram of both breasts in 1 year (for women over age 40). This patient's [facility] Lifetime Breast Cancer Risk is estimated at 3.3 %. This mammogram was interpreted with the aid of an FDA-approved computer-aided dectection system. Electronically Signed By: Isaac Salazar MD 03/29/20 [id number]
== END ==
LOC: M WHC 11:03
PROVIDERS: ATTEND Internal Medicine
DX: Z12.31 Encounter for screening mammogram for malignant neoplasm of breast (principal)

== ENCOUNTER → 2020-07-06 | Outpatient (CLI) | payer MEDICARE ==
--- NOTE | 2020-07-06 13:56 | REP ---
INDICATION: SOB. COMPARISON: Comparison chest CT studies are from 09 April and 07 April 2019.. TECHNIQUE: Helical scanning is acquired. 3 mm axial images are generated. Coronal and sagittal MPR and coronal MIP images are generated. FINDINGS: Preliminary digital stopboard assembler radiograph shows evidence of a hiatal hernia. There is a dextroconvex scoliotic curve in the thoracic spine. On axial CT images, there is mild linear fibrosis in the right upper lobe. This is unchanged. No pulmonary parenchymal mass or new infiltrate is seen. There is right middle lobe fibrosis as well mild in degree. Also unchanged. An area of linear fibrosis is noted in the lingula at the left lung base. There is no visible hilar or mediastinal mass or adenopathy. Some left coronary artery vascular calcification is noted. Small to moderate hiatal hernia is seen. Normal adrenal glands are observed. Visualized upper abdominal structures are unremarkable. no bony destructive lesion is seen. IMPRESSION: No acute cardiopulmonary disease seen. There are scattered bilateral areas of stable linear fibrosis mild in degree. <Electronically signed by Isaac Salazar > 07/06/20 [id number]
== END ==
LOC: M RAD 13:09
PROVIDERS: ATTEND Internal Medicine Pulmonary Disease
DX: R06.02 Shortness of breath (principal)

== ENCOUNTER → 2020-09-24 | Outpatient (CLI) | payer MEDICARE ==
[2020-09-24 11:41] LABS: BASO % 0.5 % (0.0-1.0); EOS # 0.2 10^3/uL (0.0-0.5); EOS % 3.5 % (0.0-3.0); HEMATOCRIT 39.9 % (36.0-47.0); LYMPH # 2.1 10^3/uL (1.5-5.0); LYMPH % 36.4 % (24.0-44.0); MEAN CORPUSCULAR HEMOGLOBIN 32.2 pg (27.0-33.0); MEAN CORPUSCULAR HGB CONC 32.6 g/dl (32.0-36.5); MEAN CORPUSCULAR VOLUME 98.8 fl (80.0-96.0); MONO # 0.6 10^3/uL (0.0-0.8); MONO % 10.9 % (2.0-8.0); NEUTROPHILS # 2.8 10^3/uL (1.5-8.5); NEUTROPHILS % 48.4 % (36.0-66.0); PLATELET COUNT, AUTOMATED 356 10^3/uL (150-450); RED BLOOD COUNT 4.04 10^6/uL (4.00-5.40); WHITE BLOOD COUNT 5.8 10^3/uL (4.0-10.0)
[2020-09-24 12:12] LABS: ALBUMIN 3.6 GM/DL (3.2-5.2); ALT/SGPT 24 U/L (12-78); BILIRUBIN,TOTAL 0.4 MG/DL (0.2-1.0); BLOOD UREA NITROGEN 18 MG/DL (7-18); CALCIUM LEVEL 9.1 MG/DL (8.8-10.2); CARBON DIOXIDE LEVEL 32 MEQ/L (21-32); CHLORIDE LEVEL 104 MEQ/L (98-107); CHOLESTEROL LEVEL 268 MG/DL (<200); CHOLESTEROL RISK RATIO 3.621 (<5); CREATININE FOR GFR 0.75 MG/DL (0.55-1.30); GLOMERULAR FILTRATION RATE > 60.0 (>39); GLUCOSE, FASTING 103 MG/DL (70-100); HDL CHOLESTEROL 74 MG/DL (>40); LDL CHOLESTEROL 155 MG/DL (<100); NON-HDL-C 194 MG/DL; POTASSIUM SERUM 3.7 MEQ/L (3.5-5.1); SODIUM LEVEL 141 MEQ/L (136-145); TOTAL PROTEIN 7.5 GM/DL (6.4-8.2); TRIGLYCERIDES LEVEL 193 MG/DL (<150)
== END ==
LOC: M WUC 09:28
PROVIDERS: ATTEND Internal Medicine
DX: I10 Essential (primary) hypertension (principal); E78.00 Pure hypercholesterolemia, unspecified; Z86.718 Personal history of other venous thrombosis and embolism

== ENCOUNTER → 2021-03-22 | Outpatient (REF) | payer MEDICARE ==
[~2021-03-22] MED LIST changes: -MONT10TA10 PO; +MONT10TA97 PO; +OMEP-173 PO; -OMEP-218 PO
== END ==
LOC: M SFHCPLAZ 12:19
PROVIDERS: ATTEND Internal Medicine
DX: E78.00 Pure hypercholesterolemia, unspecified (principal); I10 Essential (primary) hypertension

== ENCOUNTER → 2021-03-22 | Outpatient (CLI) | payer MEDICARE ==
[2021-03-22 16:13] LABS: ALBUMIN 3.9 GM/DL (3.2-5.2); BILIRUBIN,TOTAL 0.3 MG/DL (0.2-1.0); CALCIUM LEVEL 9.4 MG/DL (8.8-10.2); CHOLESTEROL RISK RATIO 3.111 (<5); CREATININE FOR GFR 0.97 MG/DL (0.55-1.30); GLOMERULAR FILTRATION RATE 59.9 (>39); MAGNESIUM LEVEL 2.4 MG/DL (1.8-2.4); POTASSIUM SERUM 3.6 MEQ/L (3.5-5.1); TOTAL PROTEIN 7.9 GM/DL (6.4-8.2)
== END ==
LOC: M PLALAB 12:31
PROVIDERS: ATTEND Internal Medicine
DX: E78.00 Pure hypercholesterolemia, unspecified (principal); I10 Essential (primary) hypertension

== ENCOUNTER → 2021-05-12 | Outpatient (CLI) | payer MEDICARE | LOC: M WHC 11:00 | PROVIDERS: ATTEND Internal Medicine | DX: Z12.31 Encounter for screening mammogram for malignant neoplasm of breast (principal) ==

== ENCOUNTER → 2021-09-19 | Outpatient (CLI) | payer MEDICARE ==
[2021-09-19 12:48] LABS: BASO % 0.5 % (0.0-1.0); EOS # 0.2 10^3/uL (0.0-0.5); EOS % 3.9 % (0.0-3.0); HEMOGLOBIN 11.6 g/dl (12.0-15.5); LYMPH # 1.9 10^3/uL (1.5-5.0); LYMPH % 33.4 % (24.0-44.0); MEAN CORPUSCULAR HEMOGLOBIN 32.4 pg (27.0-33.0); MEAN CORPUSCULAR HGB CONC 31.4 g/dl (32.0-36.5); MEAN CORPUSCULAR VOLUME 103.4 fl (80.0-96.0); MONO # 0.5 10^3/uL (0.0-0.8); MONO % 9.3 % (2.0-8.0); NEUTROPHILS % 52.7 % (36.0-66.0); RED BLOOD COUNT 3.58 10^6/uL (4.00-5.40); WHITE BLOOD COUNT 5.6 10^3/uL (4.0-10.0)
[2021-09-19 13:26] LABS: ALBUMIN 3.5 GM/DL (3.2-5.2); ALT/SGPT 19 U/L (12-78); BILIRUBIN,TOTAL 0.3 MG/DL (0.2-1.0); BLOOD UREA NITROGEN 19 MG/DL (7-18); CALCIUM LEVEL 9.5 MG/DL (8.8-10.2); CARBON DIOXIDE LEVEL 27 MEQ/L (21-32); CHLORIDE LEVEL 105 MEQ/L (98-107); CHOLESTEROL LEVEL 236 MG/DL (<200); CHOLESTEROL RISK RATIO 2.987 (<5); CREATININE FOR GFR 0.94 MG/DL (0.55-1.30); GLOMERULAR FILTRATION RATE > 60.0 (>39); GLUCOSE, FASTING 98 MG/DL (70-100); HDL CHOLESTEROL 79 MG/DL (>40); LDL CHOLESTEROL 125 MG/DL (<100); MAGNESIUM LEVEL 2.1 MG/DL (1.8-2.4); NON-HDL-C 157 MG/DL; POTASSIUM SERUM 4.7 MEQ/L (3.5-5.1); SODIUM LEVEL 140 MEQ/L (136-145); TOTAL PROTEIN 7.5 GM/DL (6.4-8.2); TRIGLYCERIDES LEVEL 160 MG/DL (<150)
[2021-09-21 13:52] LABS: FOLATE > 24.0 NG/ML; VITAMIN B12 LEVEL 660 PG/ML
== END ==
LOC: M WUC 09:06
PROVIDERS: ATTEND Internal Medicine
DX: Z00.00 Encounter for general adult medical examination without abnormal findings (principal); I10 Essential (primary) hypertension; Z86.718 Personal history of other venous thrombosis and embolism; E78.00 Pure hypercholesterolemia, unspecified

== ENCOUNTER → 2022-03-23 | Outpatient (REF) | payer MEDICARE | LOC: M SFHCPLAZ 12:59 | PROVIDERS: ATTEND Nurse Practitioner Adult Health | DX: R19.7 Diarrhea, unspecified (principal) ==

== ENCOUNTER → 2022-05-18 | Outpatient (CLI) | payer MEDICARE ==
[2022-05-18 18:03] LABS: ALBUMIN 3.7 G/DL (3.2-5.2); ALKALINE PHOSPHATASE 49 U/L (46-116); ALT/SGPT 20 U/L (7.0-40); AST/SGOT 23 U/L (<34); BILIRUBIN,TOTAL 0.4 MG/DL (0.3-1.2); BLOOD UREA NITROGEN 24 MG/DL (9-23); CALCIUM LEVEL 9.4 MG/DL (8.3-10.6); CARBON DIOXIDE LEVEL 30 MMOL/L (20-31); CHLORIDE LEVEL 104 MMOL/L (98-107); CHOLESTEROL LEVEL 236 MG/DL (<200); CHOLESTEROL RISK RATIO 2.93 (<5); CREATININE FOR GFR 0.82 MG/DL (0.55-1.30); GLOMERULAR FILTRATION RATE > 60.0 (>39); GLUCOSE, FASTING 103 MG/DL (74-106); HDL CHOLESTEROL 80.4 MG/DL (>40); LDL CHOLESTEROL 128.6 MG/DL (<100); MAGNESIUM LEVEL 1.9 MG/DL (1.8-2.4); NON-HDL-C 155.6 MG/DL; POTASSIUM SERUM 3.8 MMOL/L (3.5-5.1); SODIUM LEVEL 140 MMOL/L (136-145); THYROID STIMULATING HORMONE 1.211 uIU/ML (0.55-4.78); TOTAL 25(OH) VITAMIN D 39.4 NG/ML (20.0-100.0); TRIGLYCERIDES LEVEL 135 MG/DL (<150)
== END ==
LOC: M WUC 10:47
PROVIDERS: ATTEND Nurse Practitioner Adult Health
DX: Z00.00 Encounter for general adult medical examination without abnormal findings (principal); M81.0 Age-related osteoporosis without current pathological fracture; I10 Essential (primary) hypertension; E78.00 Pure hypercholesterolemia, unspecified

== ENCOUNTER → 2022-06-01 | Outpatient (REF) | payer MEDICARE ==
[2022-06-01 14:55] LABS: APPEARANCE, URINE HAZY (CLEAR); BACTERIA, URINE AUTO NEGATIVE (NEGATIVE); BILIRUBIN, URINE AUTO NEGATIVE (NEGATIVE); BLOOD, URINE BLOOD NEGATIVE (NEGATIVE); COLOR, URINE YELLOW (YELLOW); GLUCOSE, URINE (UA) AUTO NEGATIVE (NEGATIVE); KETONE, URINE AUTO TRACE mg/dL (NEGATIVE); LEUKOCYTE ESTERASE, URINE AUTO 2+ (NEGATIVE); MUCUS, URINE SMALL (NEGATIVE); NITRITE, URINE AUTO NEGATIVE (NEGATIVE); PROTEIN, URINE AUTO NEGATIVE (NEGATIVE); RBC, URINE AUTO 4 /HPF (0-3); SPECIFIC GRAVITY URINE AUTO 1.025 (1.002-1.035); SQUAMOUS EPITHELIAL CELL UR AU 8 /HPF (0-6); TRANSITIONAL EPITHELIAL AUTO 1 /HPF; UROBILINOGEN, URINE AUTO 0.2 mg/dL (0.0-2.0); WBC, URINE AUTO 9 /HPF (0-3)
== END ==
LOC: M SFHCPLAZ 12:51
PROVIDERS: ATTEND Physician Assistant
DX: N89.8 Other specified noninflammatory disorders of vagina (principal); R82.90 Unspecified abnormal findings in urine

== ENCOUNTER → 2022-06-15 | Outpatient (REF) | payer MEDICARE ==
[~2022-06-15] MED LIST changes: +FLUT50SP17 NARES; -FLUTISP NARES
== END ==
LOC: M SFHCPLAZ 10:13
PROVIDERS: ATTEND Physician Assistant
DX: N76.0 Acute vaginitis (principal)

== ENCOUNTER → 2022-07-18 | Outpatient (CLI) | payer MEDICARE | LOC: M WHC 12:50 | PROVIDERS: ATTEND Physician Assistant | DX: Z12.31 Encounter for screening mammogram for malignant neoplasm of breast (principal) ==

== ENCOUNTER → 2022-08-14 | Outpatient (CLI) | payer MEDICARE | LOC: M RAD 16:22 | PROVIDERS: ATTEND Internal Medicine Pulmonary Disease | DX: R06.02 Shortness of breath (principal) ==

== ENCOUNTER → 2022-08-31 | Outpatient (CLI) | payer MEDICARE | LOC: M CARPUL 07:45 | PROVIDERS: ATTEND Internal Medicine Pulmonary Disease | DX: R05.9 Cough, unspecified (principal) ==

== ENCOUNTER → 2023-03-30 | Outpatient (CLI) | payer MEDICARE ==
[~2023-03-30] MED LIST changes: -FLUT50SP17 NARES; +FLUTISP NARES
[2023-03-30 12:50] LABS: HEMATOCRIT 39.6 % (36.0-47.0); HEMOGLOBIN 12.5 g/dl (12.0-15.5); MEAN CORPUSCULAR HEMOGLOBIN 32.8 pg (27.0-33.0); MEAN CORPUSCULAR HGB CONC 31.6 g/dl (32.0-36.5); MEAN CORPUSCULAR VOLUME 103.9 fl (80.0-96.0); PLATELET COUNT, AUTOMATED 345 10^3/uL (150-450); RED BLOOD COUNT 3.81 10^6/uL (4.00-5.40); WHITE BLOOD COUNT 9.1 10^3/uL (4.0-10.0)
[2023-03-30 13:25] LABS: ALBUMIN 3.4 G/DL (3.2-5.2); ALKALINE PHOSPHATASE 44 U/L (46-116); ALT/SGPT 16 U/L (7.0-40); AST/SGOT 17 U/L (<34); BILIRUBIN,TOTAL 0.6 MG/DL (0.3-1.2); BLOOD UREA NITROGEN 17 MG/DL (9-23); CALCIUM LEVEL 8.9 MG/DL (8.3-10.6); CARBON DIOXIDE LEVEL 32 MMOL/L (20-31); CHLORIDE LEVEL 103 MMOL/L (98-107); CHOLESTEROL LEVEL 269 MG/DL (<200); CREATININE FOR GFR 0.79 MG/DL (0.55-1.30); GLOMERULAR FILTRATION RATE > 60.0 (>39); GLUCOSE, FASTING 89 MG/DL (74-106); LDL CHOLESTEROL 138.6 MG/DL (<100); MAGNESIUM LEVEL 1.9 MG/DL (1.8-2.4); POTASSIUM SERUM 3.3 MMOL/L (3.5-5.1); SODIUM LEVEL 135 MMOL/L (136-145); TOTAL PROTEIN 7.1 G/DL (5.7-8.2); TRIGLYCERIDES LEVEL 172 MG/DL (<150)
[2023-03-30 13:26] LABS: FERRITIN 11.7 NG/ML (7.3-270.7); THYROID STIMULATING HORMONE 1.777 uIU/ML (0.55-4.78)
[2023-03-30 13:27] LABS: TOTAL 25(OH) VITAMIN D 57.8 NG/ML (20.0-100.0)
== END ==
LOC: M WUC 09:21
PROVIDERS: ATTEND Nurse Practitioner Adult Health
DX: I10 Essential (primary) hypertension (principal); E78.00 Pure hypercholesterolemia, unspecified; M81.0 Age-related osteoporosis without current pathological fracture; Z86.718 Personal history of other venous thrombosis and embolism; Z86.39 Personal history of other endocrine, nutritional and metabolic disease

== ENCOUNTER → 2023-08-21 | Outpatient (CLI) | payer MEDICARE | LOC: M WHC 15:59 | PROVIDERS: ATTEND Physician Assistant Medical | DX: R60.0 Localized edema (principal) ==

== ENCOUNTER → 2023-09-20 | Outpatient (CLI) | payer MEDICARE, BC ==
[2023-09-20 13:38] LABS: MEAN CORPUSCULAR HEMOGLOBIN 31.1 pg (27.0-33.0); MEAN CORPUSCULAR HGB CONC 31.6 g/dl (32.0-36.5); MEAN CORPUSCULAR VOLUME 98.4 fl (80.0-96.0); PLATELET COUNT, AUTOMATED 295 10^3/uL (150-450); RED BLOOD COUNT 3.86 10^6/uL (4.00-5.40); WHITE BLOOD COUNT 6.9 10^3/uL (4.0-10.0)
[2023-09-20 13:47] LABS: FERRITIN 9.6 NG/ML (7.3-270.7)
[2023-09-20 13:48] LABS: THYROID STIMULATING HORMONE 1.031 uIU/ML (0.55-4.78)
[2023-09-20 13:50] LABS: TOTAL 25(OH) VITAMIN D 75.5 NG/ML (20.0-100.0)
[2023-09-20 13:57] LABS: ALBUMIN 3.4 G/DL (3.2-5.2); ALKALINE PHOSPHATASE 79 U/L (46-116); ALT/SGPT 13 U/L (7.0-40); AST/SGOT 11 U/L (<34); BILIRUBIN,TOTAL 0.5 MG/DL (0.3-1.2); BLOOD UREA NITROGEN 18 MG/DL (9-23); CALCIUM LEVEL 9.9 MG/DL (8.3-10.6); CARBON DIOXIDE LEVEL 32 MMOL/L (20-31); CHLORIDE LEVEL 104 MMOL/L (98-107); CHOLESTEROL LEVEL 171 MG/DL (<200); CHOLESTEROL RISK RATIO 2.46 (<5); CREATININE FOR GFR 0.73 MG/DL (0.55-1.30); GLOMERULAR FILTRATION RATE > 60.0 (>39); GLUCOSE, FASTING 106 MG/DL (74-106); HDL CHOLESTEROL 69.5 MG/DL (>40); LDL CHOLESTEROL 78.1 MG/DL (<100); NON-HDL-C 101.5 MG/DL; POTASSIUM SERUM 3.9 MMOL/L (3.5-5.1); SODIUM LEVEL 141 MMOL/L (136-145); TOTAL PROTEIN 6.7 G/DL (5.7-8.2); TRIGLYCERIDES LEVEL 117 MG/DL (<150)
== END ==
LOC: M WUC 09:05
PROVIDERS: ATTEND Nurse Practitioner Adult Health
DX: E78.00 Pure hypercholesterolemia, unspecified (principal); I10 Essential (primary) hypertension; M81.0 Age-related osteoporosis without current pathological fracture; Z86.718 Personal history of other venous thrombosis and embolism

== ENCOUNTER → 2023-10-01 | Outpatient (CLI) | payer MEDICARE, BC | LOC: M WUC 13:49 | PROVIDERS: ATTEND Nurse Practitioner Adult Health | DX: M47.896 Other spondylosis, lumbar region (principal); M54.50 Low back pain, unspecified ==

== ENCOUNTER → 2023-11-13 | Outpatient (CLI) | payer MEDICARE, BC ==
[2023-11-13 17:31] LABS: HEMATOCRIT 41.1 % (36.0-47.0); HEMOGLOBIN 13.2 g/dl (12.0-15.5); MEAN CORPUSCULAR HEMOGLOBIN 31.6 pg (27.0-33.0); MEAN CORPUSCULAR HGB CONC 32.1 g/dl (32.0-36.5); MEAN CORPUSCULAR VOLUME 98.3 fl (80.0-96.0); PLATELET COUNT, AUTOMATED 338 10^3/uL (150-450); RED BLOOD COUNT 4.18 10^6/uL (4.00-5.40); WHITE BLOOD COUNT 7.2 10^3/uL (4.0-10.0)
[2023-11-13 17:50] LABS: PERCENT SATURATION 16.2 % (13.2-45.0)
[2023-11-13 17:52] LABS: FERRITIN 19.2 NG/ML (7.3-270.7)
== END ==
LOC: M WUC 12:49
PROVIDERS: ATTEND Nurse Practitioner Adult Health
DX: D50.9 Iron deficiency anemia, unspecified (principal)

== ENCOUNTER → 2024-01-10 | Outpatient (CLI) | payer MEDICARE | LOC: M WHC 09:02 | PROVIDERS: ATTEND Nurse Practitioner Adult Health | DX: Z12.31 Encounter for screening mammogram for malignant neoplasm of breast (principal); M81.0 Age-related osteoporosis without current pathological fracture; M85.88 Other specified disorders of bone density and structure, other site; R92.323 Mammographic fibroglandular density, bilateral breasts ==

== ENCOUNTER → 2024-04-07 | Outpatient (REF) | payer MEDICARE ==
[~2024-04-07] MED LIST changes: -ADV250INH INH; +ADVA1AER9 INH
== END ==
LOC: M SFHCPLAZ 14:36
PROVIDERS: ATTEND Nurse Practitioner Adult Health
DX: R05.3 Chronic cough (principal)

== ENCOUNTER → 2024-04-09 | Outpatient (CLI) | payer MEDICARE ==
[2024-04-09 13:21] LABS: HEMATOCRIT 35.3 % (36.0-47.0); MEAN CORPUSCULAR HEMOGLOBIN 30.6 pg (27.0-33.0); MEAN CORPUSCULAR HGB CONC 31.2 g/dl (32.0-36.5); MEAN CORPUSCULAR VOLUME 98.3 fl (80.0-96.0); PLATELET COUNT, AUTOMATED 363 10^3/uL (150-450); RED BLOOD COUNT 3.59 10^6/uL (4.00-5.40); WHITE BLOOD COUNT 6.4 10^3/uL (4.0-10.0)
[2024-04-09 13:46] LABS: FERRITIN 7.2 NG/ML (7.3-270.7)
[2024-04-09 13:47] LABS: TOTAL 25(OH) VITAMIN D 63.9 NG/ML (20.0-100.0)
[2024-04-09 13:49] LABS: IRON (FE) 40 UG/DL (50-170)
[2024-04-09 13:50] LABS: ALBUMIN 3.6 G/DL (3.2-5.2); ALKALINE PHOSPHATASE 52 U/L (35-104); ALT/SGPT 16 U/L (7.0-40); AST/SGOT 20 U/L (<34); BILIRUBIN,TOTAL 0.5 MG/DL (0.3-1.2); BLOOD UREA NITROGEN 23 MG/DL (9-23); CALCIUM LEVEL 9.7 MG/DL (8.3-10.6); CARBON DIOXIDE LEVEL 31 MMOL/L (20-31); CHLORIDE LEVEL 101 MMOL/L (98-107); CREATININE FOR GFR 0.78 MG/DL (0.55-1.30); GLOMERULAR FILTRATION RATE > 60.0 (>39); GLUCOSE, FASTING 94 MG/DL (74-106); MAGNESIUM LEVEL 1.9 MG/DL (1.8-2.4); POTASSIUM SERUM 3.7 MMOL/L (3.5-5.1); SODIUM LEVEL 142 MMOL/L (136-145); TOTAL IRON BINDING CAPACITY 400 UG/DL (250-425); TOTAL PROTEIN 7.2 G/DL (5.7-8.2)
== END ==
LOC: M WUC 10:58
PROVIDERS: ATTEND Nurse Practitioner Adult Health
DX: R05.3 Chronic cough (principal); D50.9 Iron deficiency anemia, unspecified; I10 Essential (primary) hypertension; M81.0 Age-related osteoporosis without current pathological fracture; D60.9 Acquired pure red cell aplasia, unspecified; J98.01 Acute bronchospasm

== ENCOUNTER 2024-10-20 08:35 | Outpatient (CLI) | payer MEDICARE ==
[~2024-10-20] VITALS: Ht 152.4 cm; Wt 62.7 kg
[~2024-10-20 08:35] MED LIST changes: -ACE65ERTAB PO; +ACET-1593 PO; +ALBUTEROL SULFATE 2.5 MG/0.5 ML INH CONCENTRATE NEB SOLN INH PRN; +EPINEPHrine INJ 1 MG/ML 1ML AMP IM PRN; +diphenhydrAMINE 50 MG/ML VIAL IV PRN
[2024-10-20 08:40] VITALS: BP 144/71; O2SAT 98
[2024-10-20] MEDS: IRON SUCROSE 500 MG in NS 250 ML OVER 4 HRS IV ONE (09:15)
[2024-10-20 10:15] VITALS: BP 139/80; O2SAT 97
[2024-10-20 11:15] VITALS: BP 133/79; O2SAT 96
[2024-10-20 12:15] VITALS: BP 130/81; O2SAT 97
[2024-10-20 13:44] VITALS: BP 146/73; O2SAT 95
== END 2024-10-20 13:45 | disposition home or self-care (01) ==
LOC: M INFU 08:35
PROVIDERS: ATTEND Internal Medicine
DX: E61.1 Iron deficiency (principal)
CPT/HCPCS: 96365; 96366; J1756

== ENCOUNTER → 2024-12-22 | Outpatient (CLI) | payer MEDICARE ==
[~2024-12-22] MED LIST changes: -ALBUTEROL SULFATE 2.5 MG/0.5 ML INH CONCENTRATE NEB SOLN INH PRN; -EPINEPHrine INJ 1 MG/ML 1ML AMP IM PRN; -diphenhydrAMINE 50 MG/ML VIAL IV PRN
== END ==
LOC: M WHC 15:34
DX: R60.0 Localized edema (principal)

== ENCOUNTER → 2025-01-26 | Outpatient (REF) | payer MEDICARE ==
[~2025-01-26] MED LIST changes: +ACET-1387 PO; -ACET-1593 PO
[2025-01-26 19:10] LABS: IRON (FE) 33.0 UG/DL (50-170); PERCENT SATURATION 8.3 % (13.2-45.0)
== END ==
LOC: M LAB REF 17:46
PROVIDERS: ATTEND Internal Medicine
DX: E61.1 Iron deficiency (principal)

== ENCOUNTER 2025-02-23 11:43 | Outpatient (CLI) | payer MEDICARE ==
[~2025-02-23] VITALS: Ht 152.4 cm; Wt 61.3 kg
[~2025-02-23 11:43] MED LIST changes: +ALBUTEROL SULFATE 2.5 MG/0.5 ML INH CONCENTRATE NEB SOLN INH PRN; +EPINEPHrine INJ 1 MG/ML 1ML AMP IM PRN; +diphenhydrAMINE 50 MG/ML VIAL IV PRN
[2025-02-23 12:13] VITALS: BP 117/69; O2SAT 98
[2025-02-23] MEDS: IRON SUCROSE 500 MG in NS 250 ML IV ONE (12:40)
[2025-02-23 13:35] VITALS: BP 120/79; O2SAT 96
[2025-02-23 14:35] VITALS: BP 128/70; O2SAT 96
[2025-02-23 16:40] VITALS: BP 125/58; O2SAT 95
== END 2025-02-23 16:40 | disposition home or self-care (01) ==
LOC: M INFU 11:43
PROVIDERS: ATTEND Internal Medicine
DX: E61.1 Iron deficiency (principal)
CPT/HCPCS: 96365; 96366; J1756